=== PATIENT | female | born 1930 | race Caucasian/White ===

== ENCOUNTER 2017-05-02 19:11 | Inpatient (IN) | payer MEDICARE, MEDICAID ==
[~2017-05-02] VITALS: Ht 162.6 cm; Wt 72.6 kg
[2017-05-02] MEDS ORDERED: IV SET PRIMARY 1 EA INFUS.SET MC ONE (19:33)
[2017-05-02] MEDS ORDERED: PANTOPRAZOLE 40 MG VIAL ONE (19:33)
[2017-05-02] MEDS ORDERED: IV NS 0.9% 1,000 ML ONE ×2 (19:33→23:05)
[2017-05-02 19:39] LABS: BASOPHILS % (AUTO) 0.4 % (0.0-2.0); EOSINOPHILS # (AUTO) 0.2 /CMM (0.0-0.7); EOSINOPHILS % (AUTO) 2.1 % (0.0-6.0); HEMATOCRIT 35 % (33-45); LYMPHOCYTES # (AUTO) 1.6 /CMM (0.8-4.8); LYMPHOCYTES % (AUTO) 18.7 % (20.0-44.0); MEAN CORPUSCULAR HEMOGLOBIN 28 PG (26.0-33.0); MEAN CORPUSCULAR HGB CONC 34 g/dl (31.0-36.0); MEAN CORPUSCULAR VOLUME 84 fL (82-100); MONOCYTES # (AUTO) 0.6 /CMM (0.1-1.30); MONOCYTES % (AUTO) 6.5 % (2.0-12.0); NEUTROPHILS # (AUTO) 6.2 /CMM (1.8-8.9); NEUTROPHILS % (AUTO) 72.3 % (43.0-81.0); PLATELET COUNT (AUTO) 159 /CMM (150-450); WHITE BLOOD COUNT (AUTO) 8.6 K/uL (4.3-11.0)
[2017-05-02 19:48] LABS: CALCIUM, SERUM 9.3 mg/dL (8.5-10.1); CARBON DIOXIDE 27 mmol/L (21-32); CHLORIDE 108 mmol/L (98-107); CREATININE 1.1 mg/dL (0.6-1.3); GLUCOSE 92 mg/dL (74-106); POTASSIUM 3.6 mmol/L (3.5-5.1); SODIUM SERUM 143 mmol/L (136-145); UREA NITROGEN, BLOOD 28 mg/dL (7-18)
[2017-05-02 19:54] LABS: ALANINE AMINOTRANSFERASE 15 U/L (12-78); ALBUMIN 3.5 g/dL (3.4-5.0); ALKALINE PHOSPHATASE 87 U/L (46-116); ASPARTATE AMINOTRANSFERASE 18 U/L (15-37); BILIRUBIN,DIRECT 0.1 mg/dL (0.0-0.2); BILIRUBIN,TOTAL 0.4 mg/dL (0.2-1.0); LIPASE 175 U/L (73-393); TOTAL PROTEIN, SERUM 6.8 g/dL (6.4-8.2)
[2017-05-02] MEDS ORDERED: CT SWABBABLE VALVE TRANS SET 1 EA INFUS.SET MC ONE (19:54)
[2017-05-02] MEDS ORDERED: IOHEXOL-300 100 ML VIAL IV ONE (19:54)
[2017-05-02] MEDS ORDERED: IV NS 0.9% 250 ML IV ONE (19:54)
[2017-05-02] MEDS ORDERED: PANTOPRAZOLE 40 MG VIAL IV ONE (20:00)
[2017-05-02] MEDS ORDERED: IV NS 0.9% 1,000 ML BAG IV ONE (20:00)
[2017-05-02] MEDS ORDERED: ESOM40CA PO (20:03)
[2017-05-02] MEDS ORDERED: METF500T4 PO (20:03)
[2017-05-02] MEDS ORDERED: ERGO50003 PO (20:03)
[2017-05-02] MEDS ORDERED: PRAM0.253 PO (20:03)
[2017-05-02] MEDS ORDERED: EZET10TA PO (20:03)
[2017-05-02] MEDS ORDERED: CELE100C98 PO (20:03)
[2017-05-02] MEDS ORDERED: METO-304 PO (20:03)
[2017-05-02] MEDS ORDERED: SPIR25TA4 PO (20:03)
[2017-05-02] MEDS ORDERED: VITAMIN D2 PO (20:03)
[2017-05-02] MEDS ORDERED: TRAM50TA2 PO (20:03)
[2017-05-02] MEDS ORDERED: ATOR20TA PO (20:03)
[2017-05-02] MEDS ORDERED: ASPI-991 PO (20:03)
[2017-05-02] MEDS ORDERED: FURO20TA4 PO (20:03)
[2017-05-02] MEDS ORDERED: RIVA10TA PO (20:03)
[2017-05-02] MEDS ORDERED: OLME40TA3 PO (20:03)
[2017-05-02] MEDS ORDERED: BISA-57 PO (20:03)
[2017-05-02] MEDS ORDERED: SENN8.6T6 PO (20:03)
[2017-05-02] MEDS ORDERED: DOXE50CA4 PO (20:03)
[2017-05-02 20:08] LABS: INR 1.32 (0.87-1.13); PROTHROMBIN TIME 13.9 SECS (9.5-12.7)
[2017-05-02] MEDS ORDERED: HYDROCODONE/APAP 5/325MG 1 EACH TABLET PO PRN (21:30)
[2017-05-02] MEDS ORDERED: SENNOSIDES 8.6 MG TABLET PO PRN (21:30)
[2017-05-02] MEDS ORDERED: ACETAMINOPHEN 325 MG TABLET PO PRN (21:30)
[2017-05-02] MEDS ORDERED: ZOLPIDEM TARTRATE 5 MG TABLET PO PRN (21:30)
[2017-05-02] MEDS ORDERED: MAGNESIUM HYDROXIDE 30 ML UDC PO PRN (21:30)
[2017-05-02] MEDS ORDERED: Z GUARD REMEDY 2 OZ OINT TP PRN (21:30)
[2017-05-02] MEDS ORDERED: MAG HYDROX/AL HYDROX/SIMETH 30 ML UDC PO PRN (21:30)
[2017-05-02] MEDS ORDERED: ONDANSETRON HCL/PF 4 MG/2 ML VIAL IVP PRN (21:30)
[2017-05-02 22:00] VITALS: BP 145/76
[2017-05-02 22:30] VITALS: BP 145/76
[2017-05-02] MEDS ORDERED: IV SET PRIMARY PUMP SET 1 EA INFUS.SET MC ONE (23:23)
[2017-05-02] MEDS: IV NS 0.9% 1,000 ML IV PRN (23:28)
[2017-05-03] VITALS (7 sets, daily range): BP systolic 123–154; BP diastolic 54–74
[2017-05-03 06:43] LABS: BASOPHILS % (AUTO) 0.6 % (0.0-2.0); EOSINOPHILS # (AUTO) 0.2 /CMM (0.0-0.7); EOSINOPHILS % (AUTO) 3.1 % (0.0-6.0); HEMATOCRIT 31 % (33-45); HEMOGLOBIN 10.5 g/dL (11.5-14.8); LYMPHOCYTES # (AUTO) 1.9 /CMM (0.8-4.8); LYMPHOCYTES % (AUTO) 29.4 % (20.0-44.0); MEAN CORPUSCULAR HEMOGLOBIN 28 PG (26.0-33.0); MEAN CORPUSCULAR HGB CONC 34 g/dl (31.0-36.0); MEAN CORPUSCULAR VOLUME 84 fL (82-100); MONOCYTES # (AUTO) 0.6 /CMM (0.1-1.30); MONOCYTES % (AUTO) 8.9 % (2.0-12.0); NEUTROPHILS # (AUTO) 3.7 /CMM (1.8-8.9); PLATELET COUNT (AUTO) 149 /CMM (150-450); RDW COEFFICIENT OF VARIATION 15.9 (11.5-15.0); WHITE BLOOD COUNT (AUTO) 6.4 K/uL (4.3-11.0)
[2017-05-03 06:52] LABS: ALANINE AMINOTRANSFERASE 21 U/L (12-78); ALKALINE PHOSPHATASE 77 U/L (46-116); ASPARTATE AMINOTRANSFERASE 17 U/L (15-37); BILIRUBIN,TOTAL 0.5 mg/dL (0.2-1.0); CALCIUM, SERUM 8.7 mg/dL (8.5-10.1); CARBON DIOXIDE 28 mmol/L (21-32); CHLORIDE 109 mmol/L (98-107); CREATININE 0.9 mg/dL (0.6-1.3); GLUCOSE 104 mg/dL (74-106); MAGNESIUM 1.7 mg/dL (1.8-2.4); PHOSPHORUS 3.9 mg/dL (2.5-4.9); POTASSIUM 3.6 mmol/L (3.5-5.1); SODIUM SERUM 143 mmol/L (136-145); TOTAL PROTEIN, SERUM 5.9 g/dL (6.4-8.2); UREA NITROGEN, BLOOD 21 mg/dL (7-18)
[2017-05-03 06:54] LABS: IRON, SERUM 60 ug/dl (50-175); TOTAL IRON BINDING CAPACITY 316 ug/dl (250-450)
[2017-05-03] MEDS ORDERED: BISACODYL (5 MG) 5 MG TABLET.DR PO PRN (09:00)
[2017-05-03] MEDS ORDERED: TRAMADOL HCL 50 MG TABLET PO PRN (09:00)
[2017-05-03] MEDS ORDERED: OLMESARTAN MEDOXOMIL 40 MG PO SCH (09:00)
[2017-05-03] MEDS: METFORMIN 500 MG TABLET PO SCH (09:00)
[2017-05-03] MEDS: PANTOPRAZOLE 40 MG VIAL IV SCH ×2 (09:35→16:27)
[2017-05-03] MEDS ORDERED: SECONDARY IV SET 1 EA INFUS.SET MC ONE (09:39)
[2017-05-03] MEDS: Magnesium 1GM/D5W 100ML PREMIX 100 ML IV SCH ×2 (09:43→11:06)
[2017-05-03] MEDS: EZETIMIBE 10 MG TABLET PO SCH (10:33)
[2017-05-03] MEDS: METOPROLOL SUCCINATE 50 MG TAB.SR.24H PO SCH ×2 (10:34→16:28)
[2017-05-03] MEDS: SPIRONOLACTONE 25 MG TABLET PO SCH (10:34)
[2017-05-03] MEDS: FUROSEMIDE 20 MG TABLET PO SCH (10:34)
[2017-05-03] MEDS ORDERED: DEXTROSE 50%-WATER 50 ML DISP.SYRIN IV PRN (15:30)
[2017-05-03] MEDS ORDERED: INSULIN REGULAR, HUMAN 100 UNIT/ML 3 ML VIAL SQ PRN (15:30)
[2017-05-03] MEDS: BLOOD SUGAR DIAGNOSTIC 1 EACH STRIP IN SCH ×2 (16:27→21:53)
[2017-05-03] MEDS: PRAMIPEXOLE DI-HCL 0.25 MG TABLET PO SCH (17:04)
[2017-05-03] MEDS: DOXEPIN HCL (25 MG) 25 MG CAPSULE PO SCH (17:05)
[2017-05-03] MEDS: IV NS 0.9% 1,000 ML IV PRN (18:13)
[2017-05-03] MEDS: ATORVASTATIN 10 MG TABLET PO SCH (22:00)
[2017-05-04] MEDS: BLOOD SUGAR DIAGNOSTIC 1 EACH STRIP IN SCH ×4 (01:53→17:07)
[2017-05-04 06:53] LABS: ALANINE AMINOTRANSFERASE 22 U/L (12-78); ALBUMIN 3.2 g/dL (3.4-5.0); ALKALINE PHOSPHATASE 84 U/L (46-116); ASPARTATE AMINOTRANSFERASE 20 U/L (15-37); BILIRUBIN,TOTAL 0.7 mg/dL (0.2-1.0); CALCIUM, SERUM 9.1 mg/dL (8.5-10.1); CARBON DIOXIDE 27 mmol/L (21-32); CHLORIDE 108 mmol/L (98-107); GLUCOSE 112 mg/dL (74-106); POTASSIUM 3.4 mmol/L (3.5-5.1); SODIUM SERUM 144 mmol/L (136-145); TOTAL PROTEIN, SERUM 6.3 g/dL (6.4-8.2); UREA NITROGEN, BLOOD 15 mg/dL (7-18)
[2017-05-04 06:54] LABS: FERRITIN 19 ng/mL (8-388)
[2017-05-04 07:41] LABS: BASOPHILS % (AUTO) 0.5 % (0.0-2.0); EOSINOPHILS # (AUTO) 0.3 /CMM (0.0-0.7); EOSINOPHILS % (AUTO) 4.4 % (0.0-6.0); HEMATOCRIT 33 % (33-45); HEMOGLOBIN 11.2 g/dL (11.5-14.8); LYMPHOCYTES # (AUTO) 1.6 /CMM (0.8-4.8); LYMPHOCYTES % (AUTO) 27.2 % (20.0-44.0); MEAN CORPUSCULAR HEMOGLOBIN 28 PG (26.0-33.0); MEAN CORPUSCULAR HGB CONC 34 g/dl (31.0-36.0); MEAN CORPUSCULAR VOLUME 84 fL (82-100); MONOCYTES # (AUTO) 0.5 /CMM (0.1-1.30); MONOCYTES % (AUTO) 8.1 % (2.0-12.0); NEUTROPHILS # (AUTO) 3.6 /CMM (1.8-8.9); NEUTROPHILS % (AUTO) 59.8 % (43.0-81.0); PLATELET COUNT (AUTO) 158 /CMM (150-450); RED BLOOD CELL COUNT(AUTO) 3.96 MIL/uL (4.0-5.2)
[2017-05-04 08:00] VITALS: BP 141/86
[2017-05-04] MEDS: METFORMIN 500 MG TABLET PO SCH (08:09)
[2017-05-04] MEDS: IV NS 0.9% 1,000 ML IV PRN (08:53)
[2017-05-04] MEDS ORDERED: SECONDARY IV SET 1 EA INFUS.SET MC ONE (08:56)
[2017-05-04] MEDS: PANTOPRAZOLE 40 MG VIAL IV SCH ×2 (09:00→17:08)
[2017-05-04] MEDS: METOPROLOL SUCCINATE 50 MG TAB.SR.24H PO SCH ×2 (09:00→17:08)
[2017-05-04] MEDS: EZETIMIBE 10 MG TABLET PO SCH (09:00)
[2017-05-04] MEDS: SPIRONOLACTONE 25 MG TABLET PO SCH (09:00)
[2017-05-04] MEDS: FUROSEMIDE 20 MG TABLET PO SCH (09:00)
[2017-05-04] MEDS: POTASSIUM CL. PREMIX PERIPHER. 50 ML IV SCH ×2 (09:02→10:36)
[2017-05-04] MEDS: OLMESARTAN MEDOXOMIL 20 MG PO SCH (09:02)
[2017-05-04] MEDS ORDERED: IV SET PRIMARY PUMP SET 1 EA INFUS.SET MC ONE (09:51)
[2017-05-04] MEDS: GUAIFENESIN/D-METHORPHAN HB 5 ML UDC PO PRN (13:56)
[2017-05-04 16:00] VITALS: BP 134/85
[2017-05-04] MEDS: DOXEPIN HCL (25 MG) 25 MG CAPSULE PO SCH (17:07)
[2017-05-04] MEDS: PRAMIPEXOLE DI-HCL 0.25 MG TABLET PO SCH (17:08)
[2017-05-04 20:00] VITALS: BP 139/69
[2017-05-04] MEDS: ATORVASTATIN 10 MG TABLET PO SCH (21:59)
[2017-05-05] MEDS: BLOOD SUGAR DIAGNOSTIC 1 EACH STRIP IN SCH ×5 (00:24→23:01)
[2017-05-05] MEDS: IV NS 0.9% 1,000 ML IV PRN (04:48)
[2017-05-05 06:44] LABS: BASOPHILS % (AUTO) 0.6 % (0.0-2.0); EOSINOPHILS # (AUTO) 0.2 /CMM (0.0-0.7); EOSINOPHILS % (AUTO) 4.4 % (0.0-6.0); HEMATOCRIT 33 % (33-45); HEMOGLOBIN 11.4 g/dL (11.5-14.8); LYMPHOCYTES # (AUTO) 1.6 /CMM (0.8-4.8); LYMPHOCYTES % (AUTO) 28.7 % (20.0-44.0); MEAN CORPUSCULAR HEMOGLOBIN 29 PG (26.0-33.0); MEAN CORPUSCULAR HGB CONC 34 g/dl (31.0-36.0); MEAN CORPUSCULAR VOLUME 84 fL (82-100); MONOCYTES # (AUTO) 0.6 /CMM (0.1-1.30); MONOCYTES % (AUTO) 9.7 % (2.0-12.0); NEUTROPHILS # (AUTO) 3.2 /CMM (1.8-8.9); NEUTROPHILS % (AUTO) 56.6 % (43.0-81.0); PLATELET COUNT (AUTO) 141 /CMM (150-450); RDW COEFFICIENT OF VARIATION 15.4 (11.5-15.0); RED BLOOD CELL COUNT(AUTO) 3.96 MIL/uL (4.0-5.2); WHITE BLOOD COUNT (AUTO) 5.7 K/uL (4.3-11.0)
[2017-05-05 07:04] LABS: CALCIUM, SERUM 8.9 mg/dL (8.5-10.1); CARBON DIOXIDE 25 mmol/L (21-32); CHLORIDE 108 mmol/L (98-107); CREATININE 0.9 mg/dL (0.6-1.3); GLUCOSE 94 mg/dL (74-106); POTASSIUM 3.3 mmol/L (3.5-5.1); SODIUM SERUM 144 mmol/L (136-145); UREA NITROGEN, BLOOD 16 mg/dL (7-18)
[2017-05-05 08:00] VITALS: BP 134/76
[2017-05-05] MEDS: PANTOPRAZOLE 40 MG VIAL IV SCH ×2 (08:15→18:14)
[2017-05-05] MEDS: METOPROLOL SUCCINATE 50 MG TAB.SR.24H PO SCH ×2 (08:15→18:15)
[2017-05-05] MEDS: GUAIFENESIN/D-METHORPHAN HB 5 ML UDC PO PRN ×2 (08:15→18:14)
[2017-05-05] MEDS: EZETIMIBE 10 MG TABLET PO SCH (08:16)
[2017-05-05] MEDS: SPIRONOLACTONE 25 MG TABLET PO SCH (08:16)
[2017-05-05] MEDS: METFORMIN 500 MG TABLET PO SCH (08:16)
[2017-05-05] MEDS: FUROSEMIDE 20 MG TABLET PO SCH (08:16)
[2017-05-05] MEDS: OLMESARTAN MEDOXOMIL 20 MG PO SCH (08:17)
[2017-05-05 09:40] LABS: INR 0.97 (0.87-1.13); PROTHROMBIN TIME 10.4 SECS (9.5-12.7)
[2017-05-05] MEDS ORDERED: POTASSIUM CHLORIDE 20 MEQ TAB.PRT.SR PO SCH (10:30)
[2017-05-05] MEDS ORDERED: IV SET PRIMARY PUMP SET 1 EA INFUS.SET MC ONE (10:37)
[2017-05-05] MEDS ORDERED: IV NS 0.9% 1,000 ML ONE (10:37)
[2017-05-05] MEDS ORDERED: SECONDARY IV SET 1 EA INFUS.SET MC ONE (10:38)
[2017-05-05] MEDS: POTASSIUM CL. PREMIX PERIPHER. 50 ML IV SCH ×3 (10:42→12:34)
[2017-05-05] MEDS ORDERED: POTASSIUM CHLORIDE 10 MEQ TABLET.SA PO ONE (15:00)
[2017-05-05 16:00] VITALS: BP 145/86
[2017-05-05] MEDS ORDERED: ANESTHESIA TRAY IN PYXIS 1 EA TRAY MC ONE (17:26)
[2017-05-05] MEDS: PRAMIPEXOLE DI-HCL 0.25 MG TABLET PO SCH (18:14)
[2017-05-05] MEDS: DOXEPIN HCL (25 MG) 25 MG CAPSULE PO SCH (18:19)
[2017-05-05] MEDS: ENOXAPARIN SODIUM 80 MG/0.8 ML DISP.SYRIN SQ SCH (18:25)
[2017-05-05 20:00] VITALS: BP 120/67
[2017-05-05 22:00] VITALS: BP 120/67
[2017-05-05] MEDS: ATORVASTATIN 10 MG TABLET PO SCH (22:35)
[2017-05-06] MEDS: BLOOD SUGAR DIAGNOSTIC 1 EACH STRIP IN SCH ×2 (06:06→11:46)
[2017-05-06] MEDS: ENOXAPARIN SODIUM 80 MG/0.8 ML DISP.SYRIN SQ SCH (06:08)
[2017-05-06 06:58] LABS: BASOPHILS % (AUTO) 0.6 % (0.0-2.0); EOSINOPHILS # (AUTO) 0.3 /CMM (0.0-0.7); EOSINOPHILS % (AUTO) 4.6 % (0.0-6.0); HEMATOCRIT 35 % (33-45); LYMPHOCYTES # (AUTO) 1.7 /CMM (0.8-4.8); LYMPHOCYTES % (AUTO) 29.6 % (20.0-44.0); MEAN CORPUSCULAR HEMOGLOBIN 29 PG (26.0-33.0); MEAN CORPUSCULAR HGB CONC 34 g/dl (31.0-36.0); MEAN CORPUSCULAR VOLUME 84 fL (82-100); MONOCYTES # (AUTO) 0.6 /CMM (0.1-1.30); MONOCYTES % (AUTO) 9.8 % (2.0-12.0); NEUTROPHILS # (AUTO) 3.1 /CMM (1.8-8.9); NEUTROPHILS % (AUTO) 55.4 % (43.0-81.0); PLATELET COUNT (AUTO) 151 /CMM (150-450); RDW COEFFICIENT OF VARIATION 15.5 (11.5-15.0); RED BLOOD CELL COUNT(AUTO) 4.19 MIL/uL (4.0-5.2); WHITE BLOOD COUNT (AUTO) 5.7 K/uL (4.3-11.0)
[2017-05-06 07:04] LABS: CALCIUM, SERUM 9.2 mg/dL (8.5-10.1); CARBON DIOXIDE 26 mmol/L (21-32); CHLORIDE 106 mmol/L (98-107); GLUCOSE 110 mg/dL (74-106); POTASSIUM 3.6 mmol/L (3.5-5.1); SODIUM SERUM 144 mmol/L (136-145); UREA NITROGEN, BLOOD 17 mg/dL (7-18)
[2017-05-06 08:00] VITALS: BP_SYST 108; BP_SYST 118; BP_DIAS 70
[2017-05-06] MEDS: EZETIMIBE 10 MG TABLET PO SCH (08:28)
[2017-05-06] MEDS: METFORMIN 500 MG TABLET PO SCH (08:28)
[2017-05-06] MEDS: PANTOPRAZOLE 40 MG VIAL IV SCH (08:28)
[2017-05-06] MEDS: SPIRONOLACTONE 25 MG TABLET PO SCH (08:28)
[2017-05-06] MEDS: FUROSEMIDE 20 MG TABLET PO SCH (08:28)
[2017-05-06 08:29] VITALS: BP 121/75
[2017-05-06] MEDS: METOPROLOL SUCCINATE 50 MG TAB.SR.24H PO SCH (08:29)
[2017-05-06] MEDS: OLMESARTAN MEDOXOMIL 20 MG PO SCH (08:33)
[2017-05-08 00:05] LABS: *SPE A/G RATIO 1.5 (0.7-1.7); *SPE ALBUMIN 3.6 g/dL (2.9-4.4); *SPE ALPHA-1-GLOBULIN 0.2 g/dL (0.0-0.4); *SPE ALPHA-2-GLOBULIN 0.9 g/dL (0.4-1.0); *SPE BETA GLOBULIN 0.8 g/dL (0.7-1.3); *SPE GLOBULIN, TOTAL 2.4 g/dL (2.2-3.9); *SPE M-SPIKE Not Observed g/dL (Not Observed); *SPEGAMMA GLOBULIN 0.6 g/dL (0.4-1.8); IMMUNOGLOBULIN A, SERUM 189 mg/dL (64-422); IMMUNOGLOBULIN G, SERUM 507 mg/dL (700-1600); IMMUNOGLOBULIN M, SERUM 91 mg/dL (26-217)
== END 2017-05-06 12:53 | disposition home health service (06) | DRG 377 ==
LOC: ER 19:18 → TELE 21:02 → MED 05-03 08:18
PROVIDERS: ADMIT Family Medicine; ATTEND Family Medicine
PROC: 0DJ08ZZ Inspection of Upper Intestinal Tract, Via Natural or Artificial Opening Endoscopic (ICD-10-PCS; principal; 2017-05-05 16:00)
DX: K92.1 Melena (principal); N17.0 Acute kidney failure with tubular necrosis; D68.32 Hemorrhagic disorder due to extrinsic circulating anticoagulants; I82.511 Chronic embolism and thrombosis of right femoral vein; T45.5 Poisoning by, adverse effect of and underdosing of anticoagulants and antithrombotic drugs; K44.9 Diaphragmatic hernia without obstruction or gangrene; I25.10 Atherosclerotic heart disease of native coronary artery without angina pectoris; Z95.1 Presence of aortocoronary bypass graft; E83.42 Hypomagnesemia; Z87.11 Personal history of peptic ulcer disease; E11.9 Type 2 diabetes mellitus without complications; E87.6 Hypokalemia; E88.09 Other disorders of plasma-protein metabolism, not elsewhere classified; E86.9 Volume depletion, unspecified; Z79.899 Other long term (current) drug therapy; Z90.49 Acquired absence of other specified parts of digestive tract; D64.9 Anemia, unspecified; Z96.659 Presence of unspecified artificial knee joint; I10 Essential (primary) hypertension; Z79.01 Long term (current) use of anticoagulants; T45.525A Adverse effect of antithrombotic drugs, initial encounter; Y92.009 Unspecified place in unspecified non-institutional (private) residence as the place of occurrence of the external cause; R93.5 Abnormal findings on diagnostic imaging of other abdominal regions, including retroperitoneum
CPT/HCPCS: 36415; 71010-TC; 80048-TC; 80053-TC; 80076-TC; 82728-TC; 82746; 82784; 82962-TC; 83540-TC; 83690-TC; 83735-TC; 84100-TC; 84155; 84165; 85025-TC; 85610-TC; 85730-TC; 86334; 87081-TC; 93970-TC; A4606; C9113; J1650; J1815; J2704; J3475; J3480; J3490; J7030; J7050; Q9967; Z7610

== ENCOUNTER 2017-06-23 09:55 | Outpatient (CLI) | payer MEDICARE, MEDICAID ==
[~2017-06-23 09:55] MED LIST: ASPI-991 PO; ATOR20TA PO; BISA-57 PO; CELE100C98 PO; DOXE50CA4 PO; ERGO50003 PO; ESOM40CA PO; EZET10TA PO; FURO20TA4 PO; METF500T4 PO; METO-304 PO; OLME40TA3 PO; PRAM0.253 PO; RIVA10TA PO; SENN8.6T6 PO; SPIR25TA4 PO; TRAM50TA2 PO; VITAMIN D2 PO
[2017-06-23 11:14] LABS: BASOPHILS % (AUTO) 0.6 % (0.0-2.0); EOSINOPHILS # (AUTO) 0.2 /CMM (0.0-0.7); EOSINOPHILS % (AUTO) 3.4 % (0.0-6.0); HEMATOCRIT 35 % (33-45); HEMOGLOBIN 11.6 g/dL (11.5-14.8); LYMPHOCYTES # (AUTO) 1.7 /CMM (0.8-4.8); LYMPHOCYTES % (AUTO) 26.9 % (20.0-44.0); MEAN CORPUSCULAR HEMOGLOBIN 29 PG (26.0-33.0); MEAN CORPUSCULAR HGB CONC 33 g/dl (31.0-36.0); MEAN CORPUSCULAR VOLUME 85 fL (82-100); MONOCYTES # (AUTO) 0.4 /CMM (0.1-1.30); MONOCYTES % (AUTO) 6.5 % (2.0-12.0); NEUTROPHILS # (AUTO) 3.9 /CMM (1.8-8.9); NEUTROPHILS % (AUTO) 62.6 % (43.0-81.0); PLATELET COUNT (AUTO) 165 /CMM (150-450); RDW COEFFICIENT OF VARIATION 15.1 (11.5-15.0); RED BLOOD CELL COUNT(AUTO) 4.06 MIL/uL (4.0-5.2); WHITE BLOOD COUNT (AUTO) 6.3 K/uL (4.3-11.0)
[2017-06-23 11:52] LABS: ALANINE AMINOTRANSFERASE 23 U/L (12-78); ALBUMIN 3.4 g/dL (3.4-5.0); ALKALINE PHOSPHATASE 85 U/L (46-116); ASPARTATE AMINOTRANSFERASE 16 U/L (15-37); BILIRUBIN,TOTAL 0.2 mg/dL (0.2-1.0); CARBON DIOXIDE 27 mmol/L (21-32); CHLORIDE 107 mmol/L (98-107); CREATININE 1.1 mg/dL (0.6-1.3); GLUCOSE 119 mg/dL (74-106); POTASSIUM 4.4 mmol/L (3.5-5.1); SODIUM SERUM 142 mmol/L (136-145); TOTAL PROTEIN, SERUM 6.5 g/dL (6.4-8.2); UREA NITROGEN, BLOOD 26 mg/dL (7-18)
== END 2017-06-23 23:59 | disposition home or self-care (01) ==
LOC: LAB 09:55
PROVIDERS: ATTEND Internal Medicine Hematology & Oncology
DX: D64.9 Anemia, unspecified (principal); Z86.718 Personal history of other venous thrombosis and embolism
CPT/HCPCS: 36415; 80053-TC; 85025-TC; 85378-TC; 93970-TC

== ENCOUNTER 2017-09-15 08:07 | Outpatient (CLI) | payer MEDICARE, MEDICAID | END 2017-09-15 23:59 | disposition home or self-care (01) | LOC: CARD 08:07 | PROVIDERS: ATTEND Internal Medicine Hematology & Oncology | DX: I82.511 Chronic embolism and thrombosis of right femoral vein (principal) | CPT/HCPCS: 93971-TC ==

== ENCOUNTER 2018-01-26 08:01 | Outpatient (CLI) | payer MEDICARE, MEDICAID ==
[~2018-01-26 08:01] MED LIST changes: +ASPI-1152 PO; -ASPI-991 PO; +ERGO500014 PO; -ERGO50003 PO; -EZET10TA PO; +EZET10TA14 PO; -METO-304 PO; +METO-357 PO; +OLME40TA12 PO; -OLME40TA3 PO; +SENN-167 PO; -SENN8.6T6 PO
[2018-01-26] MEDS ORDERED: LEVOFLOXACIN 750 MG /D5W 150ML 150 ML IV ONE (19:37)
== END 2018-01-26 23:59 | disposition home or self-care (01) ==
LOC: CARD 08:01
PROVIDERS: ATTEND Internal Medicine Hematology & Oncology
DX: I82.411 Acute embolism and thrombosis of right femoral vein (principal); I82.4Y1 Acute embolism and thrombosis of unspecified deep veins of right proximal lower extremity
CPT/HCPCS: 93971; J1956

== ENCOUNTER 2018-07-31 08:09 | Outpatient (CLI) | payer MEDICARE, MEDICAID ==
[~2018-07-31 08:09] MED LIST changes: -METF500T4 PO; +METF500T6 PO; -SPIR25TA4 PO; +SPIR25TA6 PO
== END 2018-07-31 23:59 | disposition home or self-care (01) ==
LOC: CARD 08:09
PROVIDERS: ATTEND Internal Medicine Hematology & Oncology
DX: I82.511 Chronic embolism and thrombosis of right femoral vein (principal); I82.431 Acute embolism and thrombosis of right popliteal vein; I10 Essential (primary) hypertension; F41.9 Anxiety disorder, unspecified
CPT/HCPCS: 93970-TC

== ENCOUNTER 2018-10-18 19:48 | Inpatient (IN) | payer MEDICARE, MEDICAID ==
[~2018-10-18] VITALS: Ht 165.1 cm; Wt 88.9 kg
[~2018-10-18 19:48] MED LIST changes: +METF-440 PO; -METF500T6 PO; -SENN-167 PO; +SENN-168 PO
--- NOTE | 2018-10-18 19:57 | NUR ---
PER DAUGHTER PT IS ALLERGIC TO "REGULAR ASA, NOT BABY ASPIRIN"
--- NOTE | 2018-10-18 20:05 | NUR ---
BIBRA 881 FOR BLOOD IN STOOL SINCE YESTERDAY. PER FAMILY STATES "2 BM TODAY WITH BRIGHT RED BLOOD" PT DENIES WEAKNEES, NVD. PT ON ASA 81. BED 9, AOX3, VSS, RR EVEN AND UNLABORED. SKIN WARM, DRY, INTACT. DENIES DIZZINESS, WEAKNESS, N/V. MADE COMFORTABLE AND READY FOR EVAL. FAMILY AT BEDSIDE. WILL CONT TO MONITOR.
[2018-10-18] MEDS ORDERED: CT SWABBABLE VALVE TRANS SET 1 EA INFUS.SET MC ONE (20:59)
[2018-10-18] MEDS ORDERED: IV NS 0.9% 500 ML IV ONE (20:59)
[2018-10-18] MEDS ORDERED: IOHEXOL-300 100 ML VIAL IV ONE (20:59)
[2018-10-18 21:06] LABS: BASOPHILS # (AUTO) 0.1 /CMM (0.0-0.2); BASOPHILS % (AUTO) 0.9 % (0.0-2.0); EOSINOPHILS % (AUTO) 2.9 % (0.0-6.0); HEMATOCRIT 39 % (33-45); LYMPHOCYTES # (AUTO) 1.7 /CMM (0.8-4.8); LYMPHOCYTES % (AUTO) 18.6 % (20.0-44.0); MEAN CORPUSCULAR HGB CONC 34 g/dl (31.0-36.0); MEAN CORPUSCULAR VOLUME 93 fL (82-100); MONOCYTES # (AUTO) 0.7 /CMM (0.1-1.30); MONOCYTES % (AUTO) 7.3 % (2.0-12.0); NEUTROPHILS # (AUTO) 6.5 /CMM (1.8-8.9); NEUTROPHILS % (AUTO) 70.3 % (43.0-81.0); PLATELET COUNT (AUTO) 163 /CMM (150-450); RED BLOOD CELL COUNT(AUTO) 4.19 MIL/uL (4.0-5.2); WHITE BLOOD COUNT (AUTO) 9.2 K/uL (4.3-11.0)
[2018-10-18 21:24] LABS: CALCIUM, SERUM 9.6 mg/dL (8.5-10.1); CARBON DIOXIDE 25 mmol/L (21-32); CHLORIDE 104 mmol/L (98-107); CREATININE 1.8 mg/dL (0.6-1.3); GLUCOSE 141 mg/dL (74-106); POTASSIUM 4.2 mmol/L (3.5-5.1); SODIUM SERUM 140 mmol/L (136-145); UREA NITROGEN, BLOOD 18 mg/dL (7-18)
[2018-10-18 21:29] LABS: ALANINE AMINOTRANSFERASE 21 U/L (12-78); ALBUMIN 3.3 g/dL (3.4-5.0); ALKALINE PHOSPHATASE 79 U/L (46-116); ASPARTATE AMINOTRANSFERASE 14 U/L (15-37); BILIRUBIN,DIRECT 0.1 mg/dL (0.0-0.2); BILIRUBIN,TOTAL 0.3 mg/dL (0.2-1.0); LIPASE 129 U/L (73-393); TOTAL PROTEIN, SERUM 6.6 g/dL (6.4-8.2)
--- NOTE | 2018-10-18 21:54 | NUR ---
PAGED EPIC FOR PANEL - REAM CUTTER ANDONIAN
[2018-10-18] MEDS ORDERED: IV NS 0.9% 1,000 ML BAG IV ONE (22:00)
--- NOTE | 2018-10-18 22:07 | NUR ---
CALLED NURSE SUP FOR TELE
--- NOTE | 2018-10-18 22:10 | NUR ---
PT RESTING COMFORTABLY WITH FAMILY AT BEDSIDE
[2018-10-18] MEDS ORDERED: PANTOPRAZOLE 40 MG VIAL IV ONE (22:30)
[2018-10-18] MEDS ORDERED: PANTOPRAZOLE 40 MG VIAL ONE (22:32)
[2018-10-18 23:00] VITALS: BP 143/79
[2018-10-18] MEDS ORDERED: TRAMADOL HCL 50 MG TABLET PO PRN (23:00)
[2018-10-18] MEDS ORDERED: Z GUARD REMEDY 2 OZ OINT TP PRN (23:00)
[2018-10-18] MEDS ORDERED: ACETAMINOPHEN 325 MG TABLET PO PRN (23:00)
[2018-10-18] MEDS ORDERED: ZOLPIDEM TARTRATE 5 MG TABLET PO PRN (23:00)
[2018-10-18] MEDS ORDERED: HYDROCODONE/APAP 5/325MG 1 EACH TABLET PO PRN (23:00)
[2018-10-18] MEDS ORDERED: ONDANSETRON HCL/PF 4 MG/2 ML VIAL IVP PRN (23:00)
--- NOTE | 2018-10-18 23:02 | NUR ---
REPORT GIVEN TO SHANDRA BAI FOR [id number].
--- NOTE | 2018-10-18 23:30 | NUR ---
CAKE PRESS OPERATOR OPENING NOTE - New Admission Patient was admitted from ED and ambulated to the bed using cane and one assist. Patient is AAOx3, breathing comfortably on RA with no SOB, and no signs of acute distress. Vitals are WNL. SL IV in the left AC is intact and patent. Physical assessment, past medical history, and admission questions have been complete. Family is at the bedside and assisted with translation from Serbian to Pakistani, however, the patient can speak/understand some Pakistani herself. Patient has been educated on the use of the call tejada. Dr. Brito evaluated the patient at the bedside. Per Alisha, expect GI consult in the AM and possible colonoscopy, but do not bowel prep tonight (wait for GI doctor). Patient and family have no questions or concerns at this time. Will continue to monitor.
[2018-10-19] VITALS (7 sets, daily range): BP systolic 109–153; BP diastolic 66–82
[2018-10-19 01:24] LABS: BASOPHILS # (AUTO) 0.1 /CMM (0.0-0.2); BASOPHILS % (AUTO) 1.1 % (0.0-2.0); EOSINOPHILS % (AUTO) 3.3 % (0.0-6.0); HEMATOCRIT 36 % (33-45); LYMPHOCYTES # (AUTO) 2.1 /CMM (0.8-4.8); LYMPHOCYTES % (AUTO) 26.6 % (20.0-44.0); MEAN CORPUSCULAR HGB CONC 33 g/dl (31.0-36.0); MEAN CORPUSCULAR VOLUME 93 fL (82-100); MONOCYTES # (AUTO) 0.7 /CMM (0.1-1.30); MONOCYTES % (AUTO) 8.4 % (2.0-12.0); NEUTROPHILS # (AUTO) 4.8 /CMM (1.8-8.9); NEUTROPHILS % (AUTO) 60.6 % (43.0-81.0); PLATELET COUNT (AUTO) 154 /CMM (150-450); WHITE BLOOD COUNT (AUTO) 7.8 K/uL (4.3-11.0)
--- NOTE | 2018-10-19 06:55 | NUR ---
PAPER MACHINE SUPERVISOR CLOSING NOTE Patient is AOx3, breathing comfortably on RA, currently without s/s of acute distress. Patient slept poorly overnight, but was free of complications and remains in stable condition. All patient needs have been attended to. Patient care endorsed to day shift RN.
[2018-10-19 07:41] LABS: BASOPHILS # (AUTO) 0.1 /CMM (0.0-0.2); BASOPHILS % (AUTO) 1.3 % (0.0-2.0); EOSINOPHILS % (AUTO) 4.1 % (0.0-6.0); HEMATOCRIT 37 % (33-45); HEMOGLOBIN 12.5 g/dL (11.5-14.8); LYMPHOCYTES # (AUTO) 1.9 /CMM (0.8-4.8); LYMPHOCYTES % (AUTO) 26.6 % (20.0-44.0); MEAN CORPUSCULAR HGB CONC 34 g/dl (31.0-36.0); MEAN CORPUSCULAR VOLUME 93 fL (82-100); MONOCYTES # (AUTO) 0.6 /CMM (0.1-1.30); MONOCYTES % (AUTO) 8.9 % (2.0-12.0); NEUTROPHILS # (AUTO) 4.2 /CMM (1.8-8.9); NEUTROPHILS % (AUTO) 59.1 % (43.0-81.0); PLATELET COUNT (AUTO) 150 /CMM (150-450); RED BLOOD CELL COUNT(AUTO) 4.02 MIL/uL (4.0-5.2); WHITE BLOOD COUNT (AUTO) 7.1 K/uL (4.3-11.0)
[2018-10-19 08:00] LABS: CHOLESTEROL 119 mg/dL (<200); HDL CHOLESTEROL 45 mg/dL (40-60); LDL 59 mg/dL (0-99); TRIGLYCERIDES 128 mg/dL (30-150)
--- NOTE | 2018-10-19 08:00 | NUR ---
RN NOTES RECEIVED PATIENT IN THE BED TELE ON . PATIENT A/O X3 SLOVAK SPEAKER FEMALE. PATIENT HAS NO ACUTE RESPIRATORY DISTRESS. ENCOURAGED TO EXPRESS FEELINGS AND CONCERNS. PATIENT AMBULATORY USING BATHROOM, REFUSED PAIN, NO N/V NOTED, NO RECTAL BLEEDING AT THIS TIME. SCHEDULED MEDICATION ADMINISTERED, V/S STABLE. IV ACCESS ON LEFT AC AREA INTACT. CALL LIGHT WITHIN TO REACH, SAFETY PRECAUTION MAINTAINED ALL THE TIME. FAMILY NEXT TO THE BED.
[2018-10-19 08:16] LABS: CALCIUM, SERUM 9.2 mg/dL (8.5-10.1); CARBON DIOXIDE 24 mmol/L (21-32); CHLORIDE 107 mmol/L (98-107); CREATININE 1.3 mg/dL (0.6-1.3); GLUCOSE 122 mg/dL (74-106); MAGNESIUM 1.5 mg/dL (1.8-2.4); PHOSPHORUS 3.2 mg/dL (2.5-4.9); POTASSIUM 3.9 mmol/L (3.5-5.1); SODIUM SERUM 143 mmol/L (136-145); UREA NITROGEN, BLOOD 19 mg/dL (7-18)
[2018-10-19] MEDS: SPIRONOLACTONE 25 MG TABLET PO SCH (08:54)
[2018-10-19] MEDS: METOPROLOL SUCCINATE 50 MG TAB.SR.24H PO SCH ×2 (08:55→18:02)
[2018-10-19] MEDS ORDERED: FUROSEMIDE 20 MG TABLET PO SCH (09:00)
[2018-10-19] MEDS ORDERED: ERGOCALCIFEROL (VITAMIN D 2) 50,000 UNIT CAPSULE PO SCH (09:00)
[2018-10-19] MEDS: EZETIMIBE 10 MG TABLET PO SCH (09:02)
[2018-10-19] MEDS: CELECOXIB 100 MG CAPSULE PO SCH (09:02)
[2018-10-19] MEDS: ATORVASTATIN 10 MG TABLET PO SCH (09:02)
[2018-10-19] MEDS: PANTOPRAZOLE 40 MG TABLET.DR PO SCH (09:02)
--- NOTE | 2018-10-19 11:00 | NUR ---
RN NOTES DUPLEX VENOUS LOWER EXTREMITIES DONE. CONTINUED MONITORING.
[2018-10-19] MEDS: Magnesium 1GM/D5W 100ML PREMIX 100 ML IV SCH ×2 (11:33→12:20)
--- NOTE | 2018-10-19 14:08 | NUR ---
RN NOTES ADMINISTERED NARCO 5/325 MG PO PRN FOR BILATERAL LOWER LEGS PAIN 05/03 PER PATIENT REQUEST, V/S TAKEN BP 130/67, P-62. ENCOURAGED TO INCREASE FLUID INTAKE. CALL LIGHT WITHIN TO REACH. SON NEXT TO THE BED, SAFETY PRECAUTION MAINTAINED ALL THE TIME.
[2018-10-19] MEDS: PRAMIPEXOLE DI-HCL 0.25 MG TABLET PO SCH (18:02)
[2018-10-19] MEDS: DOXEPIN HCL (25 MG) 25 MG CAPSULE PO SCH (18:06)
--- NOTE | 2018-10-19 18:30 | NUR ---
RN NOTES PATIENT STABLE , SCHEDULED MEDICATION ADMINISTERED, V/S STABLE. PATIENT SCHEDULED COLONOSCOPE TOMORROW [address] DAVEY.. EDUCATION PATIENT ABOUT COLONOSCOPE. PATIENT VERBALIZED UNDERSTANDING. FAMILY NEXT TO THE BED. ENDORSED ONCOMING NURSE FOR PLAN OF CARE.
--- NOTE | 2018-10-19 19:55 | NUR ---
MS RN OPENING NOTE Patient was seen sitting upright in bed AAOx3, breathing comfortably on RA with no SOB, and no s/s of acute distress. Family was at the bedside earlier, and patient and family were educated on bowel prep using 4L of Golytely for colonoscopy 10/20/18. Bedside commode was placed next to the bed for convenience. Consent form for colonoscopy was signed by patient. SL IV in the left AC is intact and patent. Bed is low/locked for safety, two side rails up, bed alarm on, and call tejada within reach. Patient has no immediate needs/concerns at this time. Will continue to monitor.
[2018-10-19] MEDS ORDERED: PEG 3350/NA SULF,BICARB,CL/KCL 4,000 ML BOTTLE PO ONE (20:00)
--- NOTE | 2018-10-20 05:02 | NUR ---
MS RN NOTE - Bowel prep Patient finished at least 75% of Golytely bowel prep for colonoscopy. I encouraged the patient to try to finish the rest of the Golytely, and I called the patient's daughter to help with encouragement. Daughter, Jaquelin, spoke with patient over the phone. Patient said she would drink one more cup but will not drink more.
[2018-10-20 08:00] VITALS: BP 143/81
--- NOTE | 2018-10-20 08:15 | NUR ---
RN NOTE CRITICAL GLUCOSE OF 46 PER LAB. D5 STARTED AT 100mL/HR.
[2018-10-20 08:36] LABS: CHLORIDE 106 mmol/L (98-107); POTASSIUM 4.1 mmol/L (3.5-5.1); SODIUM SERUM 144 mmol/L (136-145)
[2018-10-20 08:37] LABS: CALCIUM, SERUM 9.3 mg/dL (8.5-10.1); CARBON DIOXIDE 22 mmol/L (21-32); CREATININE 1.3 mg/dL (0.6-1.3); MAGNESIUM 1.5 mg/dL (1.8-2.4); PHOSPHORUS 2.8 mg/dL (2.5-4.9); UREA NITROGEN, BLOOD 20 mg/dL (7-18)
[2018-10-20 08:41] LABS: GLUCOSE 46 mg/dL (74-106)
[2018-10-20] MEDS: BENICAR PO SCH (08:51)
[2018-10-20] MEDS: PANTOPRAZOLE 40 MG TABLET.DR PO SCH (08:51)
[2018-10-20] MEDS: EZETIMIBE 10 MG TABLET PO SCH (08:51)
[2018-10-20] MEDS: ATORVASTATIN 10 MG TABLET PO SCH (08:51)
[2018-10-20] MEDS: SPIRONOLACTONE 25 MG TABLET PO SCH (08:52)
[2018-10-20] MEDS: METFORMIN 500 MG TABLET PO SCH (08:52)
[2018-10-20] MEDS: METOPROLOL SUCCINATE 50 MG TAB.SR.24H PO SCH ×2 (08:52→17:55)
[2018-10-20 08:53] LABS: BASOPHILS % (AUTO) 0.7 % (0.0-2.0); EOSINOPHILS % (AUTO) 2.7 % (0.0-6.0); HEMATOCRIT 39 % (33-45); HEMOGLOBIN 13.2 g/dL (11.5-14.8); LYMPHOCYTES # (AUTO) 1.4 /CMM (0.8-4.8); LYMPHOCYTES % (AUTO) 21.6 % (20.0-44.0); MEAN CORPUSCULAR HGB CONC 34 g/dl (31.0-36.0); MEAN CORPUSCULAR VOLUME 93 fL (82-100); MONOCYTES # (AUTO) 0.5 /CMM (0.1-1.30); MONOCYTES % (AUTO) 8.2 % (2.0-12.0); NEUTROPHILS # (AUTO) 4.3 /CMM (1.8-8.9); NEUTROPHILS % (AUTO) 66.8 % (43.0-81.0); PLATELET COUNT (AUTO) 161 /CMM (150-450); RED BLOOD CELL COUNT(AUTO) 4.21 MIL/uL (4.0-5.2); WHITE BLOOD COUNT (AUTO) 6.4 K/uL (4.3-11.0)
[2018-10-20] MEDS ORDERED: LOSARTAN POTASSIUM 50 MG TABLET PO SCH (09:00)
[2018-10-20] MEDS: CELECOXIB 100 MG CAPSULE PO SCH (09:03)
--- NOTE | 2018-10-20 09:34 | NUR ---
RN NOTE LAB CALLED TO SAY REPORT BLOOD GLUCOSE 122.
--- NOTE | 2018-10-20 09:45 | NUR ---
RN NOTE PATIENT OFF FLOOR FOR COLONOSCOPY
[2018-10-20 11:30] VITALS: BP 140/56
[2018-10-20] MEDS: Magnesium 1GM/D5W 100ML PREMIX 100 ML IV SCH ×3 (11:50→14:47)
[2018-10-20 16:00] VITALS: BP 129/72
[2018-10-20] MEDS: PRAMIPEXOLE DI-HCL 0.25 MG TABLET PO SCH (17:54)
[2018-10-20] MEDS: DOXEPIN HCL (25 MG) 25 MG CAPSULE PO SCH (17:57)
--- NOTE | 2018-10-20 19:10 | NUR ---
MS/RN OPENING NOTES PT RECEIVED AWAKE, HOB ELEVATED. ON ROOM AIR, BREATHING EVEN AND UNLABORED. IN NO ACUTE DISTRESS. DENIES PAIN. NO SOB NOTED. IV TO LAC PATENT AND INTACT. BED IN LOW/LOCKED POSITION WITH CALL LIGHT IN REACH AND BILATERAL UPPER SIDE RAILS IN PLACE. WILL CONTINUE TO MONITOR
[2018-10-20 20:00] VITALS: BP 138/62
[2018-10-21 06:43] LABS: BASOPHILS # (AUTO) 0.1 /CMM (0.0-0.2); BASOPHILS % (AUTO) 0.8 % (0.0-2.0); EOSINOPHILS % (AUTO) 3.9 % (0.0-6.0); HEMATOCRIT 38 % (33-45); HEMOGLOBIN 12.7 g/dL (11.5-14.8); LYMPHOCYTES # (AUTO) 1.5 /CMM (0.8-4.8); LYMPHOCYTES % (AUTO) 23.4 % (20.0-44.0); MEAN CORPUSCULAR HGB CONC 33 g/dl (31.0-36.0); MEAN CORPUSCULAR VOLUME 93 fL (82-100); MONOCYTES # (AUTO) 0.5 /CMM (0.1-1.30); MONOCYTES % (AUTO) 8.5 % (2.0-12.0); NEUTROPHILS % (AUTO) 63.4 % (43.0-81.0); PLATELET COUNT (AUTO) 160 /CMM (150-450); RED BLOOD CELL COUNT(AUTO) 4.09 MIL/uL (4.0-5.2); WHITE BLOOD COUNT (AUTO) 6.3 K/uL (4.3-11.0)
[2018-10-21] MEDS: PANTOPRAZOLE 40 MG TABLET.DR PO SCH (06:43)
[2018-10-21 06:44] LABS: ALANINE AMINOTRANSFERASE 22 U/L (12-78); ALKALINE PHOSPHATASE 74 U/L (46-116); ASPARTATE AMINOTRANSFERASE 16 U/L (15-37); BILIRUBIN,TOTAL 0.4 mg/dL (0.2-1.0); CALCIUM, SERUM 9.1 mg/dL (8.5-10.1); CARBON DIOXIDE 29 mmol/L (21-32); CHLORIDE 107 mmol/L (98-107); CREATININE 1.1 mg/dL (0.6-1.3); GLUCOSE 130 mg/dL (74-106); MAGNESIUM 2.2 mg/dL (1.8-2.4); PHOSPHORUS 3.4 mg/dL (2.5-4.9); POTASSIUM 4.1 mmol/L (3.5-5.1); SODIUM SERUM 143 mmol/L (136-145); TOTAL PROTEIN, SERUM 6.1 g/dL (6.4-8.2); UREA NITROGEN, BLOOD 13 mg/dL (7-18)
--- NOTE | 2018-10-21 07:22 | NUR ---
MS/RN CLOSING NOTES PT RESTING COMFORTABLY IN BED. OPENS EYES TO NAME. ON ROOM AIR, BREATHING EVEN AND UNLABORED. DENIES SOB AND PAIN. AMBULATORY TO BATHROOM WITH STANDBY ASSIST, ALITTLE UNSTEADY. IV TO LAC PATENT AND INTACT. NO ACTIVE BLEEDING NOTED DURING SHIFT. NO SIGNIFICANT CHANGES OVERNIGHT. ALL NEEDS MET. BED REMAINS IN LOW/LOCKED POSITION WITH CALL LIGHT IN REACH, BED ALARM ON FOR SAFETY AND BILATERAL UPPER SIDE RAILS IN PLACE. WILL ENDORSE TO DAY SHIFT RN EVELYN.
--- NOTE | 2018-10-21 07:49 | NUR ---
MS RN OPENING NOTE PT A&O X3, IN STABLE CONDITION WITH NO SIGNS OF SOB OR DISTRESS. VS STABLE. BILATERAL UPPER SIDE RAILS UP, BED ALARM ON WITH CALL LIGHT WITHIN REACH. WILL CONT. TO MONITOR PT.
[2018-10-21 08:00] VITALS: BP 150/76
[2018-10-21] MEDS: SPIRONOLACTONE 25 MG TABLET PO SCH (09:04)
[2018-10-21] MEDS: METFORMIN 500 MG TABLET PO SCH (09:04)
[2018-10-21] MEDS: CELECOXIB 100 MG CAPSULE PO SCH (09:04)
[2018-10-21] MEDS: ATORVASTATIN 10 MG TABLET PO SCH (09:04)
[2018-10-21] MEDS: BENICAR PO SCH (09:04)
[2018-10-21] MEDS: METOPROLOL SUCCINATE 50 MG TAB.SR.24H PO SCH (09:04)
[2018-10-21] MEDS: EZETIMIBE 10 MG TABLET PO SCH (09:04)
--- NOTE | 2018-10-21 15:00 | NUR ---
MS RN NOTE RECEIVED DISCHARGE ORDER FROM DR. ARAUJO. DISCHARGE TEACHING DISCUSSED WITH PT. AND PT. DAUGHTER. WITH VERBAL UNDERSTANDING. PT. FAMILY INSTRUCTED TO FOLLOW UP WITH PRIMARY CARE PHYSICIAN WITHIN 1-2 WEEKS. VERBALIZED UNDERSTANDING.
--- NOTE | 2018-10-21 16:20 | NUR ---
MS RN NOTE PT. DISCHARGED HOME IN STABLE CONDITION WITH NO S/S OF DISTRESS OR SOB. SKIN REMAINED IN TACT. HER VITALS WERE STABLE WITH ALL BELONGINGS TAKEN. SHE WAS ACCOMPANIED BY CARLITOS AND CAREN (DAUGHTER) TO THEIR PRIVATE CAR.
[2018-10-21 16:26] VITALS: BP 131/72
[2018-10-25] MEDS ORDERED: ERGOCALCIFEROL (VITAMIN D 2) 50,000 UNIT CAPSULE PO SCH (09:00)
== END 2018-10-21 16:15 | disposition home or self-care (01) | DRG 393 ==
LOC: ER 19:49 → TELE 22:15 → MED 10-19 10:33
PROVIDERS: ADMIT Family Medicine; ATTEND Nurse Practitioner Acute Care
PROC: 0DJD8ZZ Inspection of Lower Intestinal Tract, Via Natural or Artificial Opening Endoscopic (ICD-10-PCS; principal; 2018-10-20 12:45)
DX: K64.8 Other hemorrhoids (principal); N17.0 Acute kidney failure with tubular necrosis; I50.32 Chronic diastolic (congestive) heart failure; E11.65 Type 2 diabetes mellitus with hyperglycemia; E66.9 Obesity, unspecified; I25.10 Atherosclerotic heart disease of native coronary artery without angina pectoris; E78.5 Hyperlipidemia, unspecified; Z95.1 Presence of aortocoronary bypass graft; Z68.32 Body mass index [BMI] 32.0-32.9, adult; Z79.84 Long term (current) use of oral hypoglycemic drugs; Z79.82 Long term (current) use of aspirin; Z86.718 Personal history of other venous thrombosis and embolism; Z79.01 Long term (current) use of anticoagulants; D64.9 Anemia, unspecified; Z88.8 Allergy status to other drugs, medicaments and biological substances; Z79.899 Other long term (current) drug therapy; E83.42 Hypomagnesemia; E86.9 Volume depletion, unspecified; I11.0 Hypertensive heart disease with heart failure; K44.9 Diaphragmatic hernia without obstruction or gangrene
CPT/HCPCS: 36415; 80048-TC; 80053-TC; 80061-TC; 80076-TC; 82962-TC; 83605-TC; 83690-TC; 83735-TC; 84100-TC; 84484-TC; 85025-TC; 85378-TC; 85730-TC; 86850-TC; 87081-TC; 93307-TC; 93971-TC; A4606; C9113; G0378; J2704; J3475; J3490; J7030; J7040; J7060; Q9967; Z7610

== ENCOUNTER 2018-12-31 11:08 | Emergency (ER) | payer MEDICARE, MEDICAID ==
[~2018-12-31] VITALS: Ht 160 cm; Wt 89.4 kg
[~2018-12-31 11:08] MED LIST changes: -RIVA10TA PO
--- NOTE | 2018-12-31 11:24 | NUR ---
DR MAYS AT BEDSIDE FOR EVAL.
[2018-12-31] MEDS ORDERED: MORPHINE SULFATE INJ 2 MG/ML DISP.SYRIN IV ONE (11:30)
[2018-12-31] MEDS ORDERED: IV NS 0.9% 1,000 ML BAG IV ONE (11:30)
--- NOTE | 2018-12-31 11:30 | NUR ---
IV LINE STARTED BLOOD DRAWN AND SENT TO LAB.
--- NOTE | 2018-12-31 11:38 | NUR ---
PER FAMILY, PT TAKES BABY ASPIRIN DAILY. ERMD AWARE.
[2018-12-31 11:39] LABS: BASOPHILS # (AUTO) 0.1 /CMM (0.0-0.2); BASOPHILS % (AUTO) 0.9 % (0.0-2.0); EOSINOPHILS % (AUTO) 1.1 % (0.0-6.0); HEMATOCRIT 41 % (33-45); HEMOGLOBIN 14.1 g/dL (11.5-14.8); LYMPHOCYTES # (AUTO) 1.7 /CMM (0.8-4.8); LYMPHOCYTES % (AUTO) 19.6 % (20.0-44.0); MEAN CORPUSCULAR HGB CONC 34 g/dl (31.0-36.0); MEAN CORPUSCULAR VOLUME 92 fL (82-100); MONOCYTES # (AUTO) 0.7 /CMM (0.1-1.30); MONOCYTES % (AUTO) 7.8 % (2.0-12.0); NEUTROPHILS # (AUTO) 6.1 /CMM (1.8-8.9); NEUTROPHILS % (AUTO) 70.6 % (43.0-81.0); PLATELET COUNT (AUTO) 184 /CMM (150-450); RED BLOOD CELL COUNT(AUTO) 4.48 MIL/uL (4.0-5.2); WHITE BLOOD COUNT (AUTO) 8.7 K/uL (4.3-11.0)
[2018-12-31] MEDS ORDERED: KETOROLAC TROMETHAMINE 15 MG/ML VIAL ONE (11:41)
[2018-12-31 11:47] LABS: CALCIUM, SERUM 9.6 mg/dL (8.5-10.1); CARBON DIOXIDE 26 mmol/L (21-32); CHLORIDE 104 mmol/L (98-107); CREATININE 1.3 mg/dL (0.6-1.3); GLUCOSE 120 mg/dL (74-106); POTASSIUM 4.4 mmol/L (3.5-5.1); SODIUM SERUM 138 mmol/L (136-145); UREA NITROGEN, BLOOD 35 mg/dL (7-18)
--- NOTE | 2018-12-31 11:53 | NUR ---
PT TO RADIOLOGY FOR ABDOMINAL CT SCAN VIA [facility].
[2018-12-31] MEDS ORDERED: KETOROLAC TROMETHAMINE INJ 30 MG/ML VIAL IV ONE (12:00)
[2018-12-31 12:02] LABS: ALANINE AMINOTRANSFERASE 21 U/L (12-78); ALBUMIN 3.9 g/dL (3.4-5.0); ALKALINE PHOSPHATASE 77 U/L (46-116); ASPARTATE AMINOTRANSFERASE 16 U/L (15-37); BILIRUBIN,DIRECT 0.1 mg/dL (0.0-0.2); BILIRUBIN,TOTAL 0.5 mg/dL (0.2-1.0); LIPASE 94 U/L (73-393); TOTAL PROTEIN, SERUM 6.9 g/dL (6.4-8.2)
[2018-12-31 12:09] LABS: APPEARANCE,URINE Clear (CLEAR); BILIRUBIN,URINE Negative (NEGATIVE); BLOOD, URINE Negative Ery/uL (NEGATIVE); COLOR,URINE Yellow (YELLOW); KETONES,URINE Negative (NEGATIVE); LEUKOCYTE ESTERASE ,URINE Negative (NEGATIVE); NITRITE, URINE Negative (NEGATIVE); PROTEIN,URINE Negative (NEGATIVE); UGLUCOSE Negative (NEGATIVE); UROBILINOGEN,URINE 0.2 EU/dL (0.2)
--- NOTE | 2018-12-31 12:47 | NUR ---
Patient discharged to home in stable condition. Written and verbal after care instructions given. Patient verbalizes understanding of instruction.IV removed. Catheter intact and site benign. Pressure and 4x4 applied to site. No bleeding noted.
[2018-12-31 12:52] VITALS: BP 151/87
== END 2018-12-31 12:53 | disposition home or self-care (01) ==
LOC: ER 11:09
DX: R10.9 Unspecified abdominal pain (principal); I10 Essential (primary) hypertension; E78.5 Hyperlipidemia, unspecified; Z86.718 Personal history of other venous thrombosis and embolism; Z98.890 Other specified postprocedural states; Z88.6 Allergy status to analgesic agent; Z79.82 Long term (current) use of aspirin
CPT/HCPCS: 36415; 74176; 80048; 80076; 81001; 83690; 84484; 85025; 96374; 99284; A4606; J1885; J7030; 81000-TC

== ENCOUNTER 2019-01-08 19:17 | Inpatient (IN) | payer MEDICARE, MEDICAID ==
[~2019-01-08] VITALS: Ht 167.6 cm; Wt 88.0 kg
--- NOTE | 2019-01-08 19:25 | NUR ---
PT BIBRA COMPLAINING OF CHRONIC BACK PAIN, 10/10 RADIATING TO LEFT PELVIC AREA AND LEFT LEG. PT HAS CHRONIC BACK PAIN. PT SPEAKS LITTLE UZBEK, FAMILY AT BEDSIDE. PT AAXO4. RESPIRATIONS EVEN AND UNLABORED. PT PUT ON THE MONITOR AND PULSE OX. PENDING EVAL FROM ER .
[2019-01-08] MEDS ORDERED: ONDANSETRON HCL/PF 4 MG/2 ML VIAL ONE (19:51)
[2019-01-08] MEDS ORDERED: MORPHINE SULFATE INJ 2 MG/ML DISP.SYRIN ONE (19:52)
[2019-01-08] MEDS ORDERED: MORPHINE SULFATE INJ 2 MG/ML DISP.SYRIN IV ONE (20:00)
[2019-01-08] MEDS ORDERED: ONDANSETRON HCL/PF - ER 4 MG/2 ML VIAL IV ONE (20:00)
--- NOTE | 2019-01-08 21:03 | NUR ---
ADMIT [facility] [id number] DX: BACK PAIN SARAH WILKES
[2019-01-08] MEDS ORDERED: KETOROLAC TROMETHAMINE INJ 30 MG/ML VIAL ONE (21:29)
[2019-01-08] MEDS ORDERED: KETOROLAC TROMETHAMINE INJ 30 MG/ML VIAL IV ONE (21:30)
--- NOTE | 2019-01-08 21:42 | NUR ---
REPORT GIVEN TO M/S LAURIE DEVI FOR EVELYN.
--- NOTE | 2019-01-08 22:50 | NUR ---
HOT BOX CHECKER NOTES PATIENT ARRIVED VIA [facility] IN STABLE CONDITION. PATIENT ABLE TO AMBULATE WITH ASSISTANCE TO BED FROM [facility]. PT IS A/O X 4, AFEBRILE. RESPIRATIONS ARE EVEN AND UNLABORED, NOT IN ANY ACUTE DISTRESS NOTED. PUPILS ARE REACTIVE TO LIGHT, BILATERAL HAND INFORMATION SYSTEMS TECHNICIAN ARE STRONG AND EQUAL. DENIES ANY SOB, N/V. IV SITE TO RAC INTACT AND PATENT, NO INFILTRATION NOTED. DRESSING KEPT CLEAN AND DRY. ABDOMEN IS SOFT AND NONDISTENDED, BOWEL SOUNDS ARE PRESENT IN ALL 4 QUADRANTS UPON AUSCULTATION. DENIES ANY BLADDER DISCOMFORT. NO SKIN ISSUES NOTED. SAFETY MEASURES ARE IN PLACE. BELONGINGS ACCOUNTED FOR. WILL MONITOR ACCORDINGLY THROUGHOUT SHIFT FOR CONTINUITY OF CARE. TWO DAUGHTERS AT BEDSIDE DURING INITIAL ASSESSMENT AND ADMISSION.
[2019-01-08 23:00] VITALS: BP 123/69
[2019-01-08] MEDS ORDERED: MAG HYDROX/AL HYDROX/SIMETH 30 ML UDC PO PRN (23:00)
[2019-01-08] MEDS ORDERED: ACETAMINOPHEN 325 MG TABLET PO PRN (23:00)
[2019-01-08] MEDS ORDERED: Z GUARD REMEDY 2 OZ OINT TP PRN (23:00)
[2019-01-08] MEDS ORDERED: DEXTROSE 50%-WATER 50 ML DISP.SYRIN IV PRN (23:00)
[2019-01-08] MEDS ORDERED: MAGNESIUM HYDROXIDE 30 ML UDC PO PRN (23:00)
[2019-01-08] MEDS ORDERED: ONDANSETRON HCL/PF 4 MG/2 ML VIAL IVP PRN (23:00)
[2019-01-08] MEDS: ZOLPIDEM TARTRATE 5 MG TABLET PO PRN (23:57)
[2019-01-09] MEDS: IV NS 0.9% 1,000 ML IV PRN ×2 (00:27→18:43)
[2019-01-09] MEDS: BLOOD SUGAR DIAGNOSTIC 1 EACH STRIP IN SCH ×4 (06:51→22:01)
--- NOTE | 2019-01-09 07:10 | NUR ---
RN NOTES ALL NEEDS ATTENDED AND MET, ALL SAFETY MEASURES IN PLACED, ABLE TO REST AND SLEEP WITH LONG INTERVALS. ENDORSED TO AM NURSE FOR CONTINUITY OF CARE.
[2019-01-09] MEDS: PANTOPRAZOLE 40 MG TABLET.DR PO SCH (07:30)
[2019-01-09] MEDS: HYDROCODONE/APAP 5/325MG 1 EACH TABLET PO PRN (07:51)
--- NOTE | 2019-01-09 07:52 | NUR ---
MS RN OPENING NOTES RECEIVED PT IN BED AWAKE, A/O X4. ABLE TO MAKE NEEDS KNOWN WITH C/O PAIN ON HER LOWER BACK, PRN NORCO 5/325MG PO GIVEN AT 0751. ON 02 VIA N/C @ 2LPM, TOLERATING WELL WITH NO SOB NOTED. IV ACCESS ON RAC G# 20 INTACT AND PATENT, IVF OF NS @ 75ML/HR INFUSING WELL, NO S/S OF INFILTRATIONS NOTED. SAFETY PRECAUTIONS IN PLACE. BED IN LOW LOCKED POSITION WITH SR UP X2. CALL LIGHT WITHIN REACH. WILL MONITOR ACCORDINGLY
[2019-01-09 08:00] VITALS: BP 125/64
[2019-01-09 08:33] LABS: BASOPHILS # (AUTO) 0.1 /CMM (0.0-0.2); BASOPHILS % (AUTO) 0.7 % (0.0-2.0); HEMATOCRIT 42 % (33-45); HEMOGLOBIN 13.9 g/dL (11.5-14.8); LYMPHOCYTES # (AUTO) 1.8 /CMM (0.8-4.8); LYMPHOCYTES % (AUTO) 24.2 % (20.0-44.0); MEAN CORPUSCULAR HGB CONC 33 g/dl (31.0-36.0); MEAN CORPUSCULAR VOLUME 94 fL (82-100); MONOCYTES # (AUTO) 0.6 /CMM (0.1-1.30); MONOCYTES % (AUTO) 8.2 % (2.0-12.0); NEUTROPHILS # (AUTO) 4.7 /CMM (1.8-8.9); NEUTROPHILS % (AUTO) 64.9 % (43.0-81.0); PLATELET COUNT (AUTO) 169 /CMM (150-450); RED BLOOD CELL COUNT(AUTO) 4.51 MIL/uL (4.0-5.2); WHITE BLOOD COUNT (AUTO) 7.2 K/uL (4.3-11.0)
[2019-01-09] MEDS: SPIRONOLACTONE 25 MG TABLET PO SCH (08:52)
[2019-01-09] MEDS: SENNOSIDES 8.6 MG TABLET PO SCH (08:52)
[2019-01-09] MEDS ORDERED: BISACODYL (5 MG) 5 MG TABLET.DR PO PRN (09:00)
[2019-01-09] MEDS ORDERED: BENICAR PO SCH (09:00)
[2019-01-09] MEDS ORDERED: CELECOXIB 100 MG CAPSULE PO SCH (09:00)
[2019-01-09 09:27] LABS: CALCIUM, SERUM 9.1 mg/dL (8.5-10.1); CARBON DIOXIDE 26 mmol/L (21-32); CHLORIDE 107 mmol/L (98-107); CHOLESTEROL 125 mg/dL (<200); CREATININE 1.3 mg/dL (0.6-1.3); GLUCOSE 122 mg/dL (74-106); HDL CHOLESTEROL 44 mg/dL (40-60); LDL 62 mg/dL (0-99); MAGNESIUM 1.9 mg/dL (1.8-2.4); PHOSPHORUS 3.7 mg/dL (2.5-4.9); POTASSIUM 5.1 mmol/L (3.5-5.1); SODIUM SERUM 143 mmol/L (136-145); THYROID STIMULATING HORMONE 1.862 uIU/mL (0.358-3.74); TRIGLYCERIDES 152 mg/dL (30-150); UREA NITROGEN, BLOOD 34 mg/dL (7-18)
[2019-01-09] MEDS: DOXEPIN HCL (25 MG) 25 MG CAPSULE PO SCH ×3 (09:30→17:51)
[2019-01-09] MEDS: ASPIRIN EC 81 MG TABLET.DR PO SCH (09:31)
[2019-01-09] MEDS: METOPROLOL SUCCINATE 50 MG TAB.SR.24H PO SCH ×2 (09:31→16:55)
--- NOTE | 2019-01-09 09:32 | NUR ---
RN NOTES SPOKE TO PT REGARDING ASPIRIN ALLERGY AND SAID THAT SHE TAKES BABY ASPIRIN 81 MG ONLY DAILY AND NOT REGULAR ASPIRIN. DR MCDUFFIE MADE AWARE AND SAID THAT IT'S OK THEN TO GIVE THE ASPIRIN. WILL CONTINUE TO MONITOR.
[2019-01-09] MEDS: INSULIN REGULAR, HUMAN 100 UNIT/ML 3 ML VIAL SQ PRN ×2 (11:55→22:04)
[2019-01-09] MEDS: BENICAR PO SCH (11:56)
[2019-01-09] MEDS: HYDROCODONE/APAP 10/325MG 1 EA TABLET PO PRN ×2 (13:50→20:10)
--- NOTE | 2019-01-09 13:52 | NUR ---
RN NOTES/PAIN MANAGEMENT PATIENT NOTED GRIMACING AND MOANING WITH C/O ACHING AND CRUSHING PAIN ON HER LOWER BACK WITH SCALE OF 10/10, PRN NORCO 10/325MG PO GIVEN AT 1350. WILL CONTINUE TO MONITOR AND REASSESS..
--- NOTE | 2019-01-09 14:35 | NUR ---
RN NOTES DOXEPIN HCL NOT GIVEN THIS MORNING, MED DUE ONCE A DAY IN PM ONLY. WILL ADMINISTER THIS AFTERNOON. PHARMACIST AWARE.
[2019-01-09 16:00] VITALS: BP 113/58
[2019-01-09] MEDS: PRAMIPEXOLE DI-HCL 0.25 MG TABLET PO SCH (17:51)
--- NOTE | 2019-01-09 19:03 | NUR ---
MS RN CLOSING NOTES PT IN BED AWAKE AND RESTING AT MODERATE HIGH BACKREST POSITION. A/O X4. ABLE TO MAKE NEEDS KNOWN. ALL NEEDS AND CARE ATTENDED WELL. ON 02 VIA N/C @ 2LPM, TOLERATING WELL WITH NO ACUTE DISTRESS NOTED THROUGHOUT THE DAY. IV ACCESS ON LEFT HAND G#22 INTACT AND PATENT, IVF OF NS @ 75ML/HR INFUSING WELL, NO S/S OG INFILTRATIONS NOTED. SAFETY MEASURES IN PLACE. BED IN LOW LOCKED POSITION WITH SR UP X2. CALL LIGHT WITHIN REACH. WILL ENDORSED TO RECOVERY OPERATOR HELPER NURSE FOR EVELYN.
--- NOTE | 2019-01-09 19:50 | NUR ---
RN NOTES RECEIVED PATIENT AWAKE IN BED, COMPLAINT OF DISCOMFORT, REPOSITIONED, ALL NEEDS ATTENDED, ON O2 AT 2LPM VIA NC TOLERATING WELL, SATING 97%, ALL SAFETY MEASURES IN PLACED, ASPIRATION PRECAUTION OBSERVED, IV ACCESS ON HER LEFT HAND G#22 INTACT AND PATENT, WILL CONTINUE TO MONITOR ACCORDINGLY.
[2019-01-09 20:00] VITALS: BP 112/71
[2019-01-09] MEDS: ATORVASTATIN 10 MG TABLET PO SCH (21:34)
[2019-01-09] MEDS: ZOLPIDEM TARTRATE 5 MG TABLET PO PRN (21:34)
[2019-01-10] MEDS: BLOOD SUGAR DIAGNOSTIC 1 EACH STRIP IN SCH ×4 (06:31→22:00)
[2019-01-10] MEDS: IV NS 0.9% 1,000 ML IV PRN ×2 (07:29→22:31)
[2019-01-10 08:00] VITALS: BP 115/74
--- NOTE | 2019-01-10 08:30 | NUR ---
PT C/O LAYING SUPINE IN BED IN LOTS OF PAIN TO BACK , VITAL SIGNS STABLE , PT IS ALERT AND ORIENTED MOVE ALL EXTREMITIES , PT ASSISTED TO BED SIDE COMMODE VOIDED , WILL ADMINISTER PAIN MEDICATION ,
[2019-01-10 08:36] LABS: BASOPHILS # (AUTO) 0.1 /CMM (0.0-0.2); BASOPHILS % (AUTO) 0.8 % (0.0-2.0); EOSINOPHILS % (AUTO) 2.7 % (0.0-6.0); HEMATOCRIT 40 % (33-45); HEMOGLOBIN 13.4 g/dL (11.5-14.8); LYMPHOCYTES # (AUTO) 1.8 /CMM (0.8-4.8); LYMPHOCYTES % (AUTO) 26.7 % (20.0-44.0); MEAN CORPUSCULAR HGB CONC 34 g/dl (31.0-36.0); MEAN CORPUSCULAR VOLUME 93 fL (82-100); MONOCYTES # (AUTO) 0.6 /CMM (0.1-1.30); MONOCYTES % (AUTO) 8.4 % (2.0-12.0); NEUTROPHILS % (AUTO) 61.4 % (43.0-81.0); PLATELET COUNT (AUTO) 161 /CMM (150-450); RED BLOOD CELL COUNT(AUTO) 4.29 MIL/uL (4.0-5.2); WHITE BLOOD COUNT (AUTO) 6.6 K/uL (4.3-11.0)
[2019-01-10] MEDS: PANTOPRAZOLE 40 MG TABLET.DR PO SCH (08:36)
[2019-01-10] MEDS: ASPIRIN EC 81 MG TABLET.DR PO SCH (08:36)
[2019-01-10] MEDS: BENICAR PO SCH (08:38)
[2019-01-10] MEDS: SENNOSIDES 8.6 MG TABLET PO SCH (08:38)
[2019-01-10] MEDS: METOPROLOL SUCCINATE 50 MG TAB.SR.24H PO SCH ×2 (08:38→17:17)
[2019-01-10] MEDS: SPIRONOLACTONE 25 MG TABLET PO SCH (08:38)
[2019-01-10 08:51] VITALS: BP 115/74
[2019-01-10] MEDS: HYDROCODONE/APAP 10/325MG 1 EA TABLET PO PRN (08:57)
[2019-01-10 08:59] LABS: CALCIUM, SERUM 9.1 mg/dL (8.5-10.1); CARBON DIOXIDE 26 mmol/L (21-32); CHLORIDE 108 mmol/L (98-107); CREATININE 1.1 mg/dL (0.6-1.3); GLUCOSE 124 mg/dL (74-106); POTASSIUM 4.8 mmol/L (3.5-5.1); SODIUM SERUM 144 mmol/L (136-145); UREA NITROGEN, BLOOD 24 mg/dL (7-18)
[2019-01-10] MEDS ORDERED: DEXAMETHASONE SOD PHOSPHATE 4 MG/ML VIAL IV SCH (09:30)
--- NOTE | 2019-01-10 09:55 | NUR ---
PATIENT GIVEN NORCO 10MG PO FOR PAIN TO BACK , MD IN TO SEE PATIENT WILL ADMINISTER DECADRONE INJECTION TO BACK
[2019-01-10] MEDS ORDERED: LIDOCAINE 1%-EPI 1:100,000 20 ML VIAL TP ONE (10:00)
[2019-01-10] MEDS ORDERED: DEXAMETHASONE SOD PHOSPHATE 10 MG/ML VIAL IV ONE (11:00)
--- NOTE | 2019-01-10 11:25 | NUR ---
DR GAITAN ADMINISTER DEXAMETHASONE 8MG PLUS 1% LIDOCAINE TO PATIENT LOWER BACK , PATIENT VERBALIZED IMMEDIATE RELIEF , WILL CONTINUE TO MONITOR
[2019-01-10] MEDS: INSULIN REGULAR, HUMAN 100 UNIT/ML 3 ML VIAL SQ PRN ×2 (12:25→17:00)
[2019-01-10 15:54] VITALS: BP 123/73
[2019-01-10 16:00] VITALS: BP 129/73
[2019-01-10 16:12] VITALS: BP 125/73
[2019-01-10] MEDS: PRAMIPEXOLE DI-HCL 0.25 MG TABLET PO SCH (17:16)
[2019-01-10] MEDS: DOXEPIN HCL (25 MG) 25 MG CAPSULE PO SCH (17:17)
[2019-01-10 20:00] VITALS: BP 124/75
[2019-01-10] MEDS: ATORVASTATIN 10 MG TABLET PO SCH (22:04)
[2019-01-11] MEDS: INSULIN REGULAR, HUMAN 100 UNIT/ML 3 ML VIAL SQ PRN ×2 (00:37→07:05)
--- NOTE | 2019-01-11 07:28 | NUR ---
RN NOTES ALL NEEDS ATTENDED AND MET, ABLE TO REST AND SLEEP WITH LONG INTERVALS. ENDORSED TO AM NURSE FOR CONTINUITY OF CARE.
[2019-01-11] MEDS: PANTOPRAZOLE 40 MG TABLET.DR PO SCH (07:30)
[2019-01-11] MEDS: BLOOD SUGAR DIAGNOSTIC 1 EACH STRIP IN SCH (07:55)
[2019-01-11 08:00] VITALS: BP 141/75
[2019-01-11] MEDS: ASPIRIN EC 81 MG TABLET.DR PO SCH (10:44)
[2019-01-11 10:45] VITALS: BP 151/68
[2019-01-11] MEDS: SPIRONOLACTONE 25 MG TABLET PO SCH (10:45)
[2019-01-11] MEDS: METOPROLOL SUCCINATE 50 MG TAB.SR.24H PO SCH (10:45)
[2019-01-11] MEDS: SENNOSIDES 8.6 MG TABLET PO SCH (10:45)
[2019-01-11] MEDS: HYDROCODONE/APAP 5/325MG 1 EACH TABLET PO PRN (10:45)
[2019-01-11] MEDS: BENICAR PO SCH (10:45)
--- NOTE | 2019-01-11 13:22 | NUR ---
0700 ASSUMED CARE OF PATIENT. PATIENT ALERT AND ORIENTED TIMES 3 WITH SOME CONFUSION. PATIENT VITALS STABLE. PATIENT DENIES PAIN AT THIS TIME. 0900 PATIENT MEDICATION COMPLIANT WITH ALL MEDICATIONS. PATIENT HAS PAIN 5/10 IN LEFT HIP. 1000 PATIENT GIVEN NORCO 5/[address] ORDERS FOR PAIN. PATIENT DAUGHTER AT BEDSIDE. 1100 PATIENT DENIES PAIN AT THIS TIME. IV DISCONTINUED. PATIENT VITALS STABLE. MEDICATION FROM PHARMACY RETURNED TO PATIENTS DAUGHTER. PATIENT AND DAUGHTER REVIEWED ALL DISCHARGE PAPERWORK. 1140 PATIENT BROUGHT DOWN ON WHEELCHAIR WITH DAUGHTER TERRI.
== END 2019-01-11 11:40 | disposition home health service (06) | DRG 552 ==
LOC: ER 19:17 → MED 21:45
PROVIDERS: ADMIT Hospitalist; ATTEND Family Medicine
DX: M54.40 Lumbago with sciatica, unspecified side (principal); I25.10 Atherosclerotic heart disease of native coronary artery without angina pectoris; Z95.1 Presence of aortocoronary bypass graft; E78.5 Hyperlipidemia, unspecified; E11.9 Type 2 diabetes mellitus without complications; E66.9 Obesity, unspecified; Z68.31 Body mass index [BMI] 31.0-31.9, adult; Z90.49 Acquired absence of other specified parts of digestive tract; I10 Essential (primary) hypertension; G89.29 Other chronic pain; Z96.659 Presence of unspecified artificial knee joint; Z86.718 Personal history of other venous thrombosis and embolism; Z79.01 Long term (current) use of anticoagulants; Z79.82 Long term (current) use of aspirin
CPT/HCPCS: 36415; 80048-TC; 80061-TC; 82962-TC; 83735-TC; 84100-TC; 84443-TC; 85025-TC; 87081-TC; G0378; J1100; J1815; J1885; J2270; J2405; J3490; J7030; J7040

== ENCOUNTER 2019-07-23 20:08 | Emergency (ER) | payer MEDICARE, MEDICAID ==
[~2019-07-23] VITALS: Ht 162.6 cm; Wt 84.4 kg
[2019-07-23] MEDS: MORPHINE SULFATE INJ 2 MG/ML DISP.SYRIN IM ONE (19:50)
[2019-07-23] MEDS: ONDANSETRON 4 MG TAB.RAPDIS SL ONE (19:50)
[2019-07-23 20:08] VITALS: BP 138/74
[~2019-07-23 20:08] MED LIST changes: -EZET10TA14 PO; +EZET10TA16 PO
--- NOTE | 2019-07-23 20:08 | NUR ---
ORIGINAL ACCOUNT AND DOCUMENTATION FOR THIS PATIENT DELETED. NEW ACCOUNT WITH PT'S PREVIOUS VISITS ADDED BY ADMITTING AT 2007
[2019-07-23] MEDS: KETOROLAC TROMETHAMINE INJ 30 MG/ML VIAL IM ONE (21:07)
[2019-07-23] MEDS ORDERED: KETOROLAC TROMETHAMINE INJ 30 MG/ML VIAL ONE (21:07)
[2019-07-24] MEDS ORDERED: OLAN2.5T3 PO (08:47)
[2019-07-24] MEDS ORDERED: DOCU-141 PO (08:47)
[2019-07-24] MEDS ORDERED: FERR325T23 PO (08:47)
[2019-07-24] MEDS ORDERED: RIVA10TA PO (08:47)
[2019-07-24] MEDS ORDERED: SENN-168 PO (08:47)
== END 2019-07-23 21:59 | disposition home or self-care (01) ==
LOC: ER 20:10
DX: M54.5 Low back pain (principal); G89.29 Other chronic pain; I10 Essential (primary) hypertension; E78.5 Hyperlipidemia, unspecified; Z88.6 Allergy status to analgesic agent; Z95.818 Presence of other cardiac implants and grafts; Z79.899 Other long term (current) drug therapy; Z79.82 Long term (current) use of aspirin
CPT/HCPCS: 96372 ×2; 99283; J1885; J2270

== ENCOUNTER 2019-07-24 07:34 | Inpatient (IN) | payer MEDICARE, MEDICAID ==
[~2019-07-24] VITALS: Ht 157.5 cm; Wt 84.8 kg
--- NOTE | 2019-07-24 07:45 | NUR ---
AAOX3, BIBA RA 881 from Home "Back pain x1yr. Was seen here yesterday for same worse last night cant sleep". Resp is even and unlabored with NAD noted. Skin is warm and dry. Warm blanket provided for comfort. Awaiting md for eval.
--- NOTE | 2019-07-24 07:48 | NUR ---
DR GARBER AT BEDSIDE FOR EVAL.
[2019-07-24] MEDS ORDERED: ONDANSETRON HCL/PF 4 MG/2 ML VIAL IVP ONE (08:00)
[2019-07-24] MEDS ORDERED: ONDANSETRON HCL/PF 4 MG/2 ML VIAL ONE (08:00)
[2019-07-24] MEDS ORDERED: HYDROMORPHONE INJ 2 MG/ML DISP.SYRIN IV ONE (08:00)
[2019-07-24] MEDS ORDERED: HYDROMORPHONE 1 MG/1 ML DISP.SYRIN ONE (08:00)
[2019-07-24 08:11] LABS: BASOPHILS # (AUTO) 0.1 /CMM (0.0-0.2); EOSINOPHILS % (AUTO) 3.6 % (0.0-6.0); HEMATOCRIT 39 % (33-45); LYMPHOCYTES # (AUTO) 1.5 /CMM (0.8-4.8); LYMPHOCYTES % (AUTO) 26.4 % (20.0-44.0); MEAN CORPUSCULAR HGB CONC 34 g/dl (31.0-36.0); MEAN CORPUSCULAR VOLUME 92 fL (82-100); MONOCYTES # (AUTO) 0.5 /CMM (0.1-1.30); MONOCYTES % (AUTO) 8.4 % (2.0-12.0); NEUTROPHILS # (AUTO) 3.5 /CMM (1.8-8.9); NEUTROPHILS % (AUTO) 60.6 % (43.0-81.0); PLATELET COUNT (AUTO) 204 /CMM (150-450); RED BLOOD CELL COUNT(AUTO) 4.21 MIL/uL (4.0-5.2); WHITE BLOOD COUNT (AUTO) 5.8 K/uL (4.3-11.0)
--- NOTE | 2019-07-24 08:14 | NUR ---
PT TO RADIOLOGY FOR LUMBAR SPINE CT SCAN VIA [facility].
[2019-07-24 08:47] LABS: CALCIUM, SERUM 9.2 mg/dL (8.5-10.1); POTASSIUM 4.3 mmol/L (3.5-5.1)
[2019-07-24] MEDS ORDERED: RIVA10TA PO (08:47)
[2019-07-24] MEDS ORDERED: FERR325T23 PO (08:47)
[2019-07-24] MEDS ORDERED: OLAN2.5T3 PO (08:47)
[2019-07-24] MEDS ORDERED: DOCU-141 PO (08:47)
[2019-07-24] MEDS ORDERED: SENN-168 PO (08:47)
--- NOTE | 2019-07-24 08:56 | NUR ---
Patient will go to [place] 208-2.
[2019-07-24 09:19] LABS: APPEARANCE,URINE Clear (CLEAR); BILIRUBIN,URINE Negative (NEGATIVE); BLOOD, URINE Negative Ery/uL (NEGATIVE); COLOR,URINE Yellow (YELLOW); KETONES,URINE Negative (NEGATIVE); LEUKOCYTE ESTERASE ,URINE Negative (NEGATIVE); NITRITE, URINE Negative (NEGATIVE); PROTEIN,URINE Negative (NEGATIVE); UGLUCOSE Negative (NEGATIVE); UROBILINOGEN,URINE 0.2 EU/dL (0.2)
--- NOTE | 2019-07-24 09:29 | NUR ---
[facility] PAGED, DR BHAKTA RESERVOIR ENGINEERING ADVISOR
--- NOTE | 2019-07-24 09:30 | NUR ---
REPORT GIVEN TO MELISSA DEVI. PT AWAITING TRANSFER TO FLOOR.
--- NOTE | 2019-07-24 09:36 | NUR ---
Dr Morales at for eval.
[2019-07-24 10:00] VITALS: BP 122/69
[2019-07-24] MEDS ORDERED: FUROSEMIDE 20 MG TABLET PO PRN (10:00)
[2019-07-24] MEDS ORDERED: DEXTROSE 50%-WATER 50 ML DISP.SYRIN IV PRN (10:00)
[2019-07-24] MEDS ORDERED: HYDROCODONE/APAP 5/325MG 1 EACH TABLET PO PRN (10:00)
[2019-07-24] MEDS ORDERED: MAG HYDROX/AL HYDROX/SIMETH 30 ML UDC PO PRN (10:00)
[2019-07-24] MEDS ORDERED: Z GUARD REMEDY 2 OZ OINT TP PRN (10:00)
[2019-07-24] MEDS ORDERED: TRAMADOL HCL 50 MG TABLET PO PRN (10:00)
[2019-07-24] MEDS ORDERED: ONDANSETRON HCL/PF 4 MG/2 ML VIAL IVP PRN (10:00)
[2019-07-24] MEDS ORDERED: SENNOSIDES 8.6 MG TABLET PO PRN (10:00)
[2019-07-24] MEDS ORDERED: ACETAMINOPHEN 325 MG TABLET PO PRN (10:00)
[2019-07-24] MEDS ORDERED: SPIRONOLACTONE 25 MG TABLET PO PRN (10:00)
--- NOTE | 2019-07-24 10:00 | NUR ---
RN MS NOTES RECEIVED PT FROM E.R. STAFF VIA [facility], PT IS AWAKE, ALERT AND ORIENTED, ACCOMPANIED BY FAMILY MEMBERS, ASSISTED TO BED, PT ABLE TO TRANSFER TO BED FROM [facility], STATED THAT HER PAIN IS BETTER 7/10, NOT IN DISTRESS, TOLERATING ROOM AIR, ROOM SET UP ORIENTATION PROVIDED, VERBALIZED UNDERSTANDING, CALL LIGHT WITHIN EASY REACH, KEPT WARM AND COMFORTABLE IN BED.
[2019-07-24] MEDS: BLOOD SUGAR DIAGNOSTIC 1 EACH STRIP VI SCH ×3 (11:47→21:34)
[2019-07-24] MEDS: MORPHINE SULFATE INJ 2 MG/ML DISP.SYRIN IV PRN (13:36)
--- NOTE | 2019-07-24 13:37 | NUR ---
RN MS NOTES PT IN BED, AWAKE, ALERT AND ORIENTED, FAMILY AT BEDSIDE, PT COMPLAINING OF LOWER BACK PAIN 10/10 AT THIS TIME, CRYING, MORPHINE IV GIVEN ORDERED, PT ABLE TO WALK TO THE BATHROOM WITH ASSISTANCE, WILL CONTINUE TO MONITOR.
[2019-07-24 16:00] VITALS: BP 110/70
[2019-07-24] MEDS: DOCUSATE SODIUM 100 MG CAPSULE PO SCH (16:41)
[2019-07-24] MEDS: METFORMIN 500 MG TABLET PO SCH (16:41)
[2019-07-24] MEDS: FERROUS SULFATE (325 MG) 325 MG/TAB TABLET PO SCH (16:41)
[2019-07-24] MEDS: DEXAMETHASONE SOD PHOSPHATE 4 MG/ML VIAL IV SCH (16:43)
[2019-07-24] MEDS: METOPROLOL SUCCINATE 50 MG TAB.SR.24H PO SCH (16:48)
--- NOTE | 2019-07-24 18:09 | NUR ---
RN MS NOTES PT IN BED, AWAKE, ALERT AND ORIENTED, NO COMPLAINT OF PAIN AT THIS TIME, NOT IN DISTRESS, BED ALARM ON, REMINDED PT TO USE CALL LIGHT FOR ASSISTANCE, VERBALIZED UNDERSTANDING, CALL LIGHT PLACED WITHIN EASY REACH, ALL NEEDS ATTENDED.
--- NOTE | 2019-07-24 19:50 | NUR ---
MS RN NOTE: PATIENT RESTING IN BED, NO ACUTE DISTRESS NOTED. BREATHING EVEN AND UNLABORED, NO SOB NOTED. IV TO RIGHT WRIST. NO S/S OF HYPER/HYPOGLYCEMIA NOTED. BED LOCKED AND IN LOWEST POSITION, CALL LIGHT IN REACH. WILL CONTINUE TO MONITOR.
[2019-07-24 20:00] VITALS: BP 136/75
[2019-07-24] MEDS: OLANZAPINE 2.5 MG TABLET PO SCH (21:34)
[2019-07-24] MEDS: *INSULIN REGULAR(HUMULIN R)HUM 100 UNIT/ML VIAL SQ PRN (21:49)
--- NOTE | 2019-07-24 22:00 | NUR ---
MS RN NOTE: PATIENT BLOOD SUGAR LEVEL 171MG/DL, PATIENT TO RECEIVE 3 UNITS OF INSULIN PER SLIDING SCALE. NO S/S OF HYPER/HYPOGLYCEMIA NOTED. PATIENT COMPLAINS OF BLE PAIN 7/10, NORCO 5/325MG 1 TAB ORAL GIVEN PER MD ORDER. WILL CONTINUE TO MONITOR.
[2019-07-25] MEDS: MORPHINE SULFATE INJ 2 MG/ML DISP.SYRIN IV PRN ×2 (00:46→06:53)
--- NOTE | 2019-07-25 00:55 | NUR ---
MS RN NOTE: PATIENT COMPLAINS OF BACK PAIN 08/03, MORPHINE 2MG IV GIVEN PER MD ORDER. WILL CONTINUE TO MONITOR.
--- NOTE | 2019-07-25 06:45 | NUR ---
MS RN NOTE: PATIENT RESTING IN BED, NO ACUTE DISTRESS NOTED. BREATHING EVEN AND UNLABORED, NO SOB NOTED. IV TO RIGHT WRIST. PATIENT BLOOD SUGAR LEVEL 161MG/DL, TO RECEIVE 3 UNITS PER SLIDING SCALE, NO S/S OF HYPER/HYPOGLYCEMIA NOTED. BED LOCKED AND IN LOWEST POSITION, CALL LIGHT IN REACH. WILL ENDORSE TO DAY NURSE TO CONTINUE WITH PLAN OF CARE.
[2019-07-25] MEDS: INSULIN REGULAR, HUMAN 100 UNIT/ML 3 ML VIAL SQ PRN ×3 (06:55→17:43)
[2019-07-25 07:30] LABS: BASOPHILS % (AUTO) 0.4 % (0.0-2.0); EOSINOPHILS % (AUTO) 0.1 % (0.0-6.0); HEMATOCRIT 39 % (33-45); LYMPHOCYTES % (AUTO) 15.6 % (20.0-44.0); MEAN CORPUSCULAR HGB CONC 33 g/dl (31.0-36.0); MEAN CORPUSCULAR VOLUME 92 fL (82-100); MONOCYTES # (AUTO) 0.3 /CMM (0.1-1.30); MONOCYTES % (AUTO) 4.8 % (2.0-12.0); NEUTROPHILS # (AUTO) 5.1 /CMM (1.8-8.9); NEUTROPHILS % (AUTO) 79.1 % (43.0-81.0); PLATELET COUNT (AUTO) 196 /CMM (150-450); RED BLOOD CELL COUNT(AUTO) 4.24 MIL/uL (4.0-5.2); WHITE BLOOD COUNT (AUTO) 6.5 K/uL (4.3-11.0)
--- NOTE | 2019-07-25 07:30 | NUR ---
RN MS NOTES PT IN BED, AWAKE, ALERT AND ORIENTED, NO COMPLAINT OF PAIN AT THIS TIME, RESPIRATIONS NORMAL, CALL LIGHT WITHIN REACH, BED ALARM ON, ASSISTED WITH BREAKFAST, ASSISTED WITH BATHROOM NEEDS, SEEN BY DR. BHAKTA, KEPT WARM AND COMFORTABLE IN BED, NEEDS ATTENDED.
[2019-07-25] MEDS: BLOOD SUGAR DIAGNOSTIC 1 EACH STRIP VI SCH ×4 (07:31→21:49)
[2019-07-25 07:41] LABS: CALCIUM, SERUM 9.6 mg/dL (8.5-10.1); CARBON DIOXIDE 24 mmol/L (21-32); CHLORIDE 104 mmol/L (98-107); CREATININE 1.1 mg/dL (0.6-1.3); GLUCOSE 149 mg/dL (74-106); MAGNESIUM 1.5 mg/dL (1.8-2.4); PHOSPHORUS 3.9 mg/dL (2.5-4.9); POTASSIUM 4.4 mmol/L (3.5-5.1); SODIUM SERUM 138 mmol/L (136-145); UREA NITROGEN, BLOOD 19 mg/dL (7-18)
[2019-07-25] MEDS: PANTOPRAZOLE 40 MG TABLET.DR PO SCH (07:56)
[2019-07-25 08:00] VITALS: BP 114/67
[2019-07-25] MEDS ORDERED: ERGOCALCIFEROL (VITAMIN D 2) 50,000 UNIT CAPSULE PO SCH (09:00)
[2019-07-25] MEDS: DOCUSATE SODIUM 100 MG CAPSULE PO SCH ×2 (09:02→17:22)
[2019-07-25] MEDS: FERROUS SULFATE (325 MG) 325 MG/TAB TABLET PO SCH ×2 (09:02→17:22)
[2019-07-25] MEDS: METOPROLOL SUCCINATE 50 MG TAB.SR.24H PO SCH ×2 (09:02→17:00)
[2019-07-25] MEDS: METFORMIN 500 MG TABLET PO SCH ×2 (09:02→17:22)
[2019-07-25] MEDS: ASPIRIN EC 81 MG TABLET.DR PO SCH (09:02)
[2019-07-25] MEDS: RIVAROXABAN 10 MG TABLET PO SCH (09:04)
[2019-07-25] MEDS: DEXAMETHASONE SOD PHOSPHATE 4 MG/ML VIAL IV SCH ×2 (09:04→17:22)
--- NOTE | 2019-07-25 13:00 | NUR ---
RN MS NOTES PT IN BED, RESTING, NO COMPLAINT OF PAIN OR ANY DISCOMFORT, RESPIRATIONS NORMAL, CALL LIGHT WITHIN REACH, PT ABLE TO USE CALL LIGHT FOR ASSISTANCE, ASSISTED TO BATHROOM NEEDED, SEEN BY DR. BHAKTA TODAY, PLAN OF CARE DISCUSSED WITH PT AND FAMILY, VERBALIZED UNDERSTANDING, PT SEEN BY PHYSICAL THERAPIST, TOLERATED ACTIVITY WELL.
[2019-07-25] MEDS: Magnesium 1GM/D5W 100ML PREMIX 100 ML IV SCH ×2 (13:11→14:44)
[2019-07-25 16:00] VITALS: BP 110/58
--- NOTE | 2019-07-25 19:00 | NUR ---
RN MS NOTES PT IN BED, RESTING, NO COMPLAINT AT THIS TIME, NOT IN DISTRESS, CALL LIGHT WITHIN REACH, BED ALARM ON, PM MEDS GIVEN, ALL NEEDS ATTENDED.
--- NOTE | 2019-07-25 19:50 | NUR ---
RN OPENING NOTES RECEIVED REPORT FROM [facility] RN SANDRO. FOUND Pt AWAKE, RESTING IN BED. Pt IS AMBULATORY WITH STAND BY ASSIST. Pt IS A/OX3, VERBAL, ABLE TO MAKE NEEDS KNOWN, IVORIAN SPEAKING, UNDERSTANDS SOME [place]. IV ACCESS ON R WRIST #20G, SL. NO S/S OF ACUTE DISTRESS OR SOB NOTED. SAFETY MEASURES IN PLACE. BED LOW, LOCKED, HOB ELEVATED, SIDE RAILS UP, CALL LIGHT AND BEDSIDE TABLE WITHIN REACH. BED ALARM ON. WILL CONTINUE TO MONITOR Pt's CONDITION AND SAFETY THROUGHOUT THE NIGHT.
[2019-07-25 20:00] VITALS: BP 142/67
[2019-07-25] MEDS: OLANZAPINE 2.5 MG TABLET PO SCH (21:48)
[2019-07-25] MEDS: ATORVASTATIN 10 MG TABLET PO SCH (21:49)
[2019-07-25] MEDS: MAGNESIUM HYDROXIDE 30 ML UDC PO PRN (22:00)
--- NOTE | 2019-07-25 22:05 | NUR ---
RN NOTES HS ACCUCHECK BG 138. Pt REFUSED INSULIN COVERAGE AT THIS TIME.
[2019-07-26] MEDS: MORPHINE SULFATE INJ 2 MG/ML DISP.SYRIN IV PRN (00:11)
--- NOTE | 2019-07-26 06:31 | NUR ---
RN NOTES AC ACCUCHECK BG 112. NO INSULIN COVERAGE NEEDED AT THIS TIME.
[2019-07-26] MEDS: PANTOPRAZOLE 40 MG TABLET.DR PO SCH (06:38)
[2019-07-26] MEDS: BLOOD SUGAR DIAGNOSTIC 1 EACH STRIP VI SCH ×4 (06:39→21:43)
--- NOTE | 2019-07-26 06:50 | NUR ---
RN CLOSING NOTES NO SIGNIFICANT CHANGES IN Pt's CONDITION. Pt REMAINS STABLE PER BASELINE. NO S/S OF ACUTE DISTRESS OR SOB NOTED DURING THE NIGHT. ALL NEEDS MET AND ATTENDED TO. SAFETY MEASURES IN PLACE. Pt IS RESTING COMFORTABLY IN BED, WITH UNLABORED RESPIRATIONS AND EQUAL CHEST RISE AND FALL. WILL ENDORSE TO DAYSHIFT RN FOR Pt's EVELYN.
--- NOTE | 2019-07-26 07:55 | NUR ---
MS RN NOTES PATIENT RECEIVED RESTING INSIDE ROOM. AWAKE, ALERT AND ORIENTED X 3, VERBALLY RESPONSIVE AND RESPONDS TO VERBAL AND TACTILE STIMULI. BREATHING EVEN AND UNLABORED. NO ACUTE DISTRESS. NO C/O PAIN OR DISCOMFORT AT THIS TIME. SAFETY PRECAUTIONS IN PLACE. WILL CONTINUE TO MONITOR. BED LOCKED AND IN LOW POSITION. BILATERAL UPPER SIDE RAILS UP AND LOCKED. CALL LIGHT WITHIN EASY REACH
[2019-07-26 08:00] VITALS: BP 145/70
[2019-07-26] MEDS: RIVAROXABAN 10 MG TABLET PO SCH (08:27)
[2019-07-26] MEDS: ASPIRIN EC 81 MG TABLET.DR PO SCH (08:30)
[2019-07-26] MEDS: METOPROLOL SUCCINATE 50 MG TAB.SR.24H PO SCH ×2 (08:30→17:23)
[2019-07-26] MEDS: FERROUS SULFATE (325 MG) 325 MG/TAB TABLET PO SCH ×2 (08:30→17:24)
[2019-07-26] MEDS: DEXAMETHASONE SOD PHOSPHATE 4 MG/ML VIAL IV SCH ×2 (08:30→17:23)
[2019-07-26] MEDS: METFORMIN 500 MG TABLET PO SCH ×2 (08:30→17:24)
[2019-07-26] MEDS: DOCUSATE SODIUM 100 MG CAPSULE PO SCH ×2 (08:30→17:23)
[2019-07-26] MEDS: INSULIN REGULAR, HUMAN 100 UNIT/ML 3 ML VIAL SQ PRN ×2 (11:56→17:22)
[2019-07-26 16:00] VITALS: BP 118/68
--- NOTE | 2019-07-26 19:02 | NUR ---
MS RN NOTES PATIENT RESTING INSIDE ROOM. AWAKE, ALERT AND ORIENTED X 3, VERBALLY RESPONSIVE AND RESPONDS TO VERBAL AND TACTILE STIMULI. BREATHING EVEN AND UNLABORED. NO ACUTE DISTRESS. PATIENT KEPT CLEAN, DRY AND COMFORTABLE. PROVIDED WITH CALM, SAFE, HAZARD-FREE ENVIRONMENT. SAFETY PRECAUTIONS IN PLACE. WILL ENDORSE TO INCOMING SHIFT FOR EVELYN. BED LOCKED AND IN LOW POSITION. BILATERAL UPPER SIDE RAILS UP AND LOCKED. CALL LIGHT WITHIN EASY REACH
--- NOTE | 2019-07-26 19:40 | NUR ---
RN OPENING NOTES RECEIVED REPORT FROM [facility]. FOUND Pt ASLEEP IN BED. RESPIRATIONS EVEN AND UNLABORED WITH EQUAL CHEST RISE AND FALL. Pt IS AMBULATORY WITH STAND BY ASSIST. Pt IS A/OX3, VERBAL, ABLE TO MAKE NEEDS KNOWN, [place] SPEAKING, UNDERSTANDS SOME MALDIVIAN. IV ACCESS ON R WRIST #20G, SL. NO S/S OF ACUTE DISTRESS OR SOB NOTED. SAFETY MEASURES IN PLACE. BED LOW, LOCKED, HOB ELEVATED, SIDE RAILS UP, CALL LIGHT AND BEDSIDE TABLE WITHIN REACH. BED ALARM ON. WILL CONTINUE TO MONITOR Pt's CONDITION AND SAFETY THROUGHOUT THE NIGHT.
[2019-07-26 20:00] VITALS: BP 136/81
[2019-07-26] MEDS: OLANZAPINE 2.5 MG TABLET PO SCH (21:43)
[2019-07-26] MEDS: ATORVASTATIN 10 MG TABLET PO SCH (21:43)
[2019-07-26] MEDS: *INSULIN REGULAR(HUMULIN R)HUM 100 UNIT/ML VIAL SQ PRN (21:52)
[2019-07-26] MEDS: MAGNESIUM HYDROXIDE 30 ML UDC PO PRN (21:57)
--- NOTE | 2019-07-26 22:01 | NUR ---
RN NOTES HS ACCUCHECK BG 169. ADMINISTERED 3UN OF INSULIN PER SLIDING SCALE. ON LT DELTOID.
--- NOTE | 2019-07-27 06:35 | NUR ---
RN NOTES AC ACCUCHECK BG 122. NO INSULIN COVERAGE NEEDED AT THIS TIME.
--- NOTE | 2019-07-27 06:37 | NUR ---
RN CLOSING NOTES NO SIGNIFICANT CHANGES IN Pt's CONDITION. Pt REMAINS STABLE PER BASELINE. NO S/S OF ACUTE DISTRESS OR SOB NOTED DURING THE NIGHT. Pt STATED SHE HAD 1 SMALL BM THIS AM. ALL NEEDS MET AND ATTENDED TO. SAFETY MEASURES IN PLACE. Pt IS RESTING COMFORTABLY IN BED, WITH UNLABORED RESPIRATIONS AND EQUAL CHEST RISE AND FALL. WILL ENDORSE TO DAYSHIFT RN FOR Pt's EVELYN.
[2019-07-27] MEDS: PANTOPRAZOLE 40 MG TABLET.DR PO SCH (06:38)
[2019-07-27] MEDS: BLOOD SUGAR DIAGNOSTIC 1 EACH STRIP VI SCH ×2 (06:38→12:40)
--- NOTE | 2019-07-27 07:40 | NUR ---
MS RN NOTES PATIENT RECEIVED RESTING INSIDE ROOM. AWAKE, ALERT AND ORIENTED X 3, VERBALLY RESPONSIVE AND RESPONDS TO VERBAL AND TACTILE STIMULI. NO ACUTE DISTRESS. NO C/O PAIN OR DISCOMFORT. WILL CONTINUE TO MONITOR. BED LOCKED AND IN LOW POSITION. BILATERAL UPPER SIDE RAILS UP AND LOCKED. CALL LIGHT WITHIN EASY REACH
[2019-07-27 08:00] VITALS: BP 163/73
[2019-07-27] MEDS: DEXAMETHASONE SOD PHOSPHATE 4 MG/ML VIAL IV SCH (08:42)
[2019-07-27] MEDS: RIVAROXABAN 10 MG TABLET PO SCH (08:42)
[2019-07-27] MEDS: METFORMIN 500 MG TABLET PO SCH (08:42)
[2019-07-27] MEDS: METOPROLOL SUCCINATE 50 MG TAB.SR.24H PO SCH (08:42)
[2019-07-27] MEDS: DOCUSATE SODIUM 100 MG CAPSULE PO SCH (08:42)
[2019-07-27] MEDS: FERROUS SULFATE (325 MG) 325 MG/TAB TABLET PO SCH (08:42)
[2019-07-27] MEDS: ASPIRIN EC 81 MG TABLET.DR PO SCH (08:42)
[2019-07-27] MEDS: INSULIN REGULAR, HUMAN 100 UNIT/ML 3 ML VIAL SQ PRN (12:40)
--- NOTE | 2019-07-27 14:40 | NUR ---
MS RN NOTES PATIENT CLEARED BY DR BLANCHARD FOR DISCHARGE. RECEIVED REPORT FROM CASE MANAGEMENT THAT PLAN FOR PATIENT TO DISCHARGE TO [facility], WITH TRANSPORTATION HOME ENERGY AUDITOR AT APPROXIMATELY 5PM. PLACED CALL TO [facility] ([phone]) AND GAVE REPORT TO GENIE DEVI.
[2019-07-27 16:00] VITALS: BP 130/67
--- NOTE | 2019-07-27 17:50 | NUR ---
MS RN NOTES PATIENT FOR DISCHARGE TODAY TO [facility]. DISCHARGE INSTRUCTIONS AND EDUCATION PROVIDED TO PATIENT AND VERBALIZED UNDERSTANDING. IV REMOVED WITH TIP INTACT, PRESSURE DRESSING PLACED ON SITE. NO NEW SKIN BREAKDOWN NOTED ON DISCHARGE. ALL BELONGINGS COMPLETE ON DISCHARGE, NO REPORT OF MISSING INVENTORY. PATIENT LEFT UNIT VIA GURNEY IN STABLE CONDITION. NO ACUTE DISTRESS. NO C/O PAIN OR DISCOMFORT. MD AWARE OF DISCHARGE
== END 2019-07-27 17:53 | DRG 552 ==
LOC: ER 07:36 → MEDSG2 09:12
PROVIDERS: ADMIT Internal Medicine; ATTEND Student in an Organized Health Care Education/Training Program
DX: M48.061 Spinal stenosis, lumbar region without neurogenic claudication (principal); E78.5 Hyperlipidemia, unspecified; Z79.01 Long term (current) use of anticoagulants; Z86.718 Personal history of other venous thrombosis and embolism; I25.10 Atherosclerotic heart disease of native coronary artery without angina pectoris; Z95.1 Presence of aortocoronary bypass graft; Z79.899 Other long term (current) drug therapy; Z79.84 Long term (current) use of oral hypoglycemic drugs; Z79.82 Long term (current) use of aspirin; I10 Essential (primary) hypertension; E11.9 Type 2 diabetes mellitus without complications; Z88.8 Allergy status to other drugs, medicaments and biological substances; Z90.49 Acquired absence of other specified parts of digestive tract; Z96.659 Presence of unspecified artificial knee joint; M54.30 Sciatica, unspecified side
CPT/HCPCS: 36415; 72131-TC; 80048-TC; 81000-TC; 82962-TC; 83735-TC; 84100-TC; 85025-TC; 85730-TC; 87081-TC; 97110-TC; 97116-TC; 97530-TC; G0378; J1100; J1170; J1815; J2270; J2405; J3475; J7050